=== PATIENT | female | born 1975 | race Caucasian/White ===

== ENCOUNTER 2022-03-02 13:58 | Outpatient (CLI) | payer BC, SELFPAY ==
--- NOTE | 2022-03-02 14:00 | CRLHL7_ITS ---
For Patients: As a result of the Century Cures Act, medical imaging exams and procedure reports are released immediately into your electronic medical record. You may view this report before your referring provider. If you have questions, please contact your health care provider. INDICATION: Chronic hypertension, IVF. COMPARISON: OB ultrasound 02/02/2022. TECHNIQUE: Real time burt scale imaging of the fetus was performed without non-stress testing. FINDINGS: Sonographic imaging demonstrates a single living intrauterine gestation. The fetus demonstrates a regular cardiac rate of 155 beats per minute. The fetus has a cephalic orientation. The placenta lies anteriorly. Amniotic fluid volume appears normal, with single deepest pocket measuring 3.9 cm (2/2). The fetus was active (2/2). The fetus demonstrated normal breathing movements (2/2). There was normal flexion and extension of the trunk and extremities (2/2). IMPRESSION: Normal biophysical profile score 8 out of 8. Dictated by Natalia Padgett MD @ 03/02/2022 5:55:49 PM (Electronically Signed)
== END 2022-03-02 13:59 | disposition home or self-care (01) ==
LOC: US 13:59
PROVIDERS: PCP Family Medicine; Visit Provider Physician Assistant
DX: O10.919 Unspecified pre-existing hypertension complicating pregnancy, unspecified trimester (principal); O09.819 Supervision of pregnancy resulting from assisted reproductive technology, unspecified trimester; Z3A.00 Weeks of gestation of pregnancy not specified
CPT/HCPCS: 76819

== ENCOUNTER 2022-03-03 09:53 | Outpatient (CLI) | payer BC, SELFPAY ==
[2022-03-04 09:43] LABS: Strep B DNA Probe NEGATIVE (Negative)
== END 2022-03-03 09:54 | disposition home or self-care (01) ==
LOC: NFLDREF 09:53
PROVIDERS: PCP Family Medicine; Visit Provider Advanced Practice Midwife
DX: Z34.90 Encounter for supervision of normal pregnancy, unspecified, unspecified trimester (principal)
CPT/HCPCS: 87081; 87653

== ENCOUNTER 2022-03-10 18:25 | Inpatient (IN) | payer BC, SELFPAY ==
[2022-03-10] VITALS (13 sets, daily range): BP systolic 135–170; BP diastolic 82–102; PULSE 90–105; RESP 16; TEMP 36.6–36.8; O2SAT 96
--- NOTE | 2022-03-10 18:35 | PM.OBHPLI ---
OB - H&P: HPI Labor/Induction History of Present Illness Time Seen by Provider: 18:35 Date Seen: 03/10/22 Chief Complaint: Malini is a 46 year old 1 para 0 at 37and 0/7 weeks gestation by embryo transfer, who is being admitted for cervical ripening followed by IOL for mild preeclampsia superimposed on chronic htn. She was seen in the office earlier today and noted to have BP 150-160's/90's-100's. She was then sent to Labor and delivery for serial blood pressure monitoring and preeclampsia labs. Her blood pressures primarily remained 140s/90s with a few diastolic blood pressures as high as 106. Preeclampsia labs showed hemoglobin 12.5, platelets 337, BUN 9, creatinine 0.6, AST 38, ALT 40 and urine protein/creatinine ratio 0.30. She had a protein creatinine ratio at her 1st visit 0.02. Her only symptom of preeclampsia is significant bilateral lower extremity edema. She otherwise denies headache, visual changes, right upper quadrant/midepigastric pain and nausea/vomiting. She has had reactive NST x2 today. She was allowed to leave the Center to go home and mushroom picker her legs for admission. She has not returned for Cook catheter placement. Planning low-dose Pitocin to start at midnight. Repeat preeclampsia labs with coags: PTT/INR, PTT and fibrinogen were also ordered. I will start magnesium sulfate for seizure prophylaxis if she requires IV antihypertensives for severe preeclampsia-range blood pressures. Her complete history and physical was dictated earlier today by Dr. Katherine De La Fuente on 03/10/2022. 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 Multiple anomalies 1. Conceived through IVF at [facility] Donor egg.? Age 22 Genetic testing done prior to IVF transfer.? BOY! 2.? Chronic Hypertension: was taking Nifedipine.? Switched to Labetalol 100mg BID at first OB visit. Pre E labs:? Normal AST:? 23 ALT:? 20 Protein/creatinine ratio:? 0.19 Labetalol increased to 150 mg twice daily on 10/29/2021 *BP noted to be 147/97 and 152/99 at [facility] appt on 02/21/22.? Labs done, all normal (P/C 0.2, plts 298, Hgb 12, ALT 36, Cr 0.67). Growth ultrasound q.4 weeks starting at 32 weeks BPP or NST starting at 32 weeks. Worsening hypertension noted at 37 weeks.? Sent to Center for induction of labor. 3.? Hypothyroidism: TSH 1st trit 1.55, 2nd tri 2.6, 3rd tri 1.35.? Levothyroxine 125 mcg throughout . 4.? AMA Level 2 u/s:? 11/09/2021.? heart not well visualized, femur bones disparity in size and appearance, worrisome for skeletal dysplasia.? Marginal cord insertion. *Referral to [facility] for echo and further evaluation:? Initial evaluation done on 11/16/2021.? Confirmed short left femur, angulated right femur, and no other structural abnormalities.? 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 Recommended follow-up ultrasound for growth in 4 weeks and echocardiogram with pediatric cardiology to address possible variant in heart position (scheduled): * echo:? 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 NO ADVERSE HEMODYNAMIC EFFECT.? Recommend echo and outpatient cardiology cisit within first 6 months of life. *Growth ultrasounds q4 weeks:? 12/16/21 EFW 681 g (19%), SDP 4.7cm *Growth US 01/17/22: EFW 1453g (45%), L FL 5% and bent.? Rec: f/u US in 4-6 wks *02/02/2022 US: BPP 8/8, Vtx, SDP 5.4cm. EFW 1698g, 9wd70jw, 18%.? BPD 81%, HC 96%, AC 69%, FL<3% *02/21/22 US: EFW 2433g (44%), BPD/HC 94->97%, femurs <3% and abnormally shaped.? BPP/NST 05/29.? Patient reportedly has Appt with [facility] on 02/24/22. * 02/21/22 Preeclampsia labs at [facility]: Hgb: 12.0, Plts: 298K, ALT 36, (no AST), Creat: 0.67. Urine P/C ratio: 0.20. *Weekly NST starting 33wks *Recommend delivery at 39-40 weeks.? Cleared by [facility] to deliver at [facility]. Recommended Genome sequencing baby after , [facility] recommended immediately because it takes a month or longer after . [facility] said this lab is sent out and should be done as soon as possible to help direct orthopedic management options. ?? 5. H/o abnormal pap starting in 2007, LEEP in 12/2016: LSIL; colp: MIRANDA 1 01/2018: NIL, +HPV; colp: MIRANDA 1, neg ECC Pap 09/16/21: NIL, neg HPV 6. BMI 29.2 A1C 4.9% 7. Initial OB ultrasound showed 3 leiomyomas measuring 3.9x3.8x3.4cm, 3.8x3.4x3.9cm, and 3.9x3.2x3.5cm 8. H/o HSV.? Valtrex 500 mg b.i.d. beginning 36 weeks. 9.? Rh-negative RhoGAM:? 01/05/2022. 10. Mild anemia, hemoglobin 10.8 Ferrous sulfate Flu vaccine: completed Covid vaccine: completed; booster 08/25/2020 TDAP 01/19/22 02/16/2021 Labs: Blood type A negative. Rubella: 8.39, immune HBsAg: non reactive HIV nonreactive GC/CT: neg/neg Hep C: non reactive Varicella: 743.70, immune Chief complaint: Induction Indications for induction: pre-eclampsia History of Present Dating criteria: other (Embryo transfer, this was conceived with donor eggs.) care: good care Ultrasounds: normal 1st trimester US and abnormal US findings (The baby has very short lower extremities see notes above.) complications: preeclampsia and chronic hypertension Labs Blood type: A (-) negative Rubella: immune RPR/VDLR: nonreactive GBS status: negative HBsAG: negative Review of Systems Status of ROS: Reports: 10 or more systems reviewed and unremarkable except as noted in History and below Meds Home Medications and Allergies Home Medications Medication Instructions Recorded Confirmed Type aspirin 81 mg chewable tablet 81 mg PO DAILY tab 02/17/22 03/10/22 History cholecalciferol (vitamin D3) 25 2,000 unit PO DAILY tab 02/17/22 03/10/22 History mcg (1,000 unit) tablet ferrous sulfate 325 mg (65 mg mg PO DAILY 02/17/22 03/10/22 History iron) tablet levothyroxine 125 mcg tablet mcg PO DAILY 02/17/22 03/10/22 History prenat.vits,jose,hpc-kvzd-evusr 1 tab PO QDAY 02/17/22 03/10/22 History valacyclovir 500 mg tablet mg PO .Daily as needed PRN 02/17/22 03/10/22 History labetalol 100 mg tablet 150 mg PO BID tab 02/22/22 03/10/22 History Allergies Allergy/AdvReac Type Severity Reaction Status Date / Time ketoconazole Allergy Mild Hives Verified 03/10/22 13:12 nystatin Allergy Mild Hives Verified 03/10/22 13:12 Sulfa Antibiotics Allergy Unknown Uncoded 03/10/22 13:12 OB - H&P: Exam Physical Exam: Vital signs: BP: 155/95, P 105, R 16, O2 sat 96% on RA. Constitutional: Constitutional: no acute distress Routine HEENT Exam: Head: Present atraumatic, normal inspection and normocephalic Routine Respiratory Exam: Respiratory: Present CTA bilaterally Routine Cardiovascular Exam: Cardiovascular: RRR Detailed Abdominal Exam: Comments: Gravid. NT. Normal bowel sounds throughout. Routine Exam: Comments: SVE: 1cm/70%/-2/mid/soft. Swartz score: 7 Detailed Labor and Delivery Exam: Patient Gravid: yes Dilation (cm): 1 Effacement (%): 70 Cervix position: mid Consistency: soft Cervical ripeness score: 7 Contraction frequency (min): 7 Contraction duration (sec): 45 Tachysystole: No Contraction intensity: Mild Fetus (Single): Station: -2 Heart Rate Baseline: 130 Monitor Accelerations: Present Monitor Decelerations: None Prison Variability: Moderate (11-25) Routine Extremities Exam: Extremities: Present pedal edema Routine Neurological Exam: Comments: DTR's 2+/2 at bilateral patella w/o clonus. OB - Problem Based A/P Additional Plan (1) Pre-eclampsia superimposed on chronic hypertension: Status: Acute (2) Conceived by in vitro fertilization: Status: Acute (3) Hypothyroidism: Status: Acute (4) musculoskeletal anomaly: Problem details: Short femurs Status: Acute Plan 1. Admit to L&D for IOL 2. Cook catheter to be placed, start low dose pitocin at midnight 3. Preeclampsia labs now and repeat in the am: CBC w/o diff, AST, ALT, BUN, Creat 4. Coags now: INR/PT, PTT, fibrinogen 5. If the patient's BP requires IV antihypertensive therapy then she will meet criteria for severe preeclampsia and magnesium sulfate will be started for seizure prophylaxis. 6. Recommendations for serum labs requested from the [facility] in the patient's EMR. 7. Blood type A negative. 8. GBS negative.
[2022-03-10 19:41] LABS: Hematocrit 37.6 % (33.0-51.0); Hemoglobin* 12.6 gm/dL (12.0-16.0); Mean Corpuscular HGB Conc 34 gm/dL (32-36); Mean Corpuscular Hemoglobin 32 pg (26-34); Mean Corpuscular Volume 94 fL (80-100); Platelet Count* 302 K/uL (140-440); Red Blood Count 3.99 m/uL (4.00-5.20)
[2022-03-10 19:42] LABS: Slide Review Reflex No
[2022-03-10 20:12] LABS: INR 0.95 (0.91-1.10); Prothrombin Time 13.1 Seconds
[2022-03-10 20:22] LABS: Alanine Aminotransferase* 39 U/L (4-35); Aspartate Amino Transferase* 37 U/L (12-35); Blood Urea Nitrogen* 9 mg/dL (5-24); Creatinine* 0.6 mg/dL (0.5-1.5); Estimated Glomerular Filt Rate 113 ml/min
[2022-03-10 20:56] LABS: Fibrinogen* 542 mg/dL (200-450)
[2022-03-10 21:13] LABS: SARS PCR* Negative SARS-CoV-2 (Negative)
[2022-03-10] MEDS: CALCIUM CARBONATE 500 MG CHEW PO (22:04)
[2022-03-10] MEDS: hydrOXYzine pamoate 25 MG CAPSULE 100 MG PO (22:48)
[2022-03-10] MEDS: ACETAMINOPHEN 500 MG TABLET 1000 MG PO (23:35)
[2022-03-11] VITALS (83 sets, daily range): BP systolic 97–179; BP diastolic 54–99; PULSE 76–99; RESP 16–20; TEMP 36.4–36.8; O2SAT 95–99
[2022-03-11] MEDS: LACTATED RINGERS 1000 ML 1,000 ML 125 ML IV ×5 (00:12→21:35)
[2022-03-11] MEDS: OXYTOCIN 30 unit/500 ML in NS 30 UNIT/500 ML BAG IVPB (00:12)
[2022-03-11] MEDS: MORPHINE 10 MG/ML inj IM (00:39)
[2022-03-11 07:42] LABS: Hematocrit 35.4 % (33.0-51.0); Hemoglobin* 11.9 gm/dL (12.0-16.0); Mean Corpuscular HGB Conc 34 gm/dL (32-36); Mean Corpuscular Hemoglobin 32 pg (26-34); Mean Corpuscular Volume 94 fL (80-100); Platelet Count* 287 K/uL (140-440); Red Blood Count 3.76 m/uL (4.00-5.20); White Blood Count* 11.91 K/uL (4.50-11.00)
[2022-03-11 07:48] LABS: Slide Review Reflex No
[2022-03-11 08:09] LABS: INR 0.94 (0.91-1.10)
[2022-03-11 08:10] LABS: Fibrinogen* 513 mg/dL (200-450)
[2022-03-11 08:11] LABS: Alanine Aminotransferase* 34 U/L (4-35); Aspartate Amino Transferase* 33 U/L (12-35); Blood Urea Nitrogen* 6 mg/dL (5-24); Creatinine* 0.5 mg/dL (0.5-1.5); Estimated Glomerular Filt Rate 118 ml/min
[2022-03-11] MEDS: LABETALOL HCL 100 MG TABLET 150 MG PO (09:12)
--- NOTE | 2022-03-11 10:36 | PM.OBPNL ---
Pain Control Time Seen by Provider: 10:25 Date Seen: 03/11/22 Pain control: tolerating well Comments: Denies pain. Aware of mild contractions. Contractions Monitor mode: External Contraction frequency: 2 Contraction intensity: Mild Pelvic Exam Dilation (cm): 6 Effacement (%): 60 Station: -2 Comments: BBOW. Amniotomy performed, clear fluid noted. Fetus (Single) Amniotic Membrane Status: AROM status: Category l Assessment and Plan Assessment: induction ongoing Plan: continue present management
[2022-03-11] MEDS: LEVOTHYROXINE 125 MCG TABLET PO (10:52)
[2022-03-11] MEDS: CALCIUM CARBONATE 500 MG CHEW PO ×3 (12:39→18:23)
[2022-03-11] MEDS: ACETAMINOPHEN 500 MG TABLET 1000 MG PO (15:18)
--- NOTE | 2022-03-11 15:52 | P.OBPN_ITS ---
Pain Control Time Seen by Provider: 02:30 Date Seen: 03/11/22 Pain control: tolerating well Contractions Monitor mode: External Contraction frequency: 2 Contraction pattern: Regular Contraction intensity: Mild Pelvic Exam Dilation (cm): 7 Effacement (%): 85 Station: -2 Fetus (Single) Amniotic Membrane Status: AROM status: Category l Assessment and Plan Pitocin rate (mU/min): 15 Assessment: active labor Comments: IUPC was placed. Nurse to place scalp electrode. Continue Pitocin augmen tation of labor.
[2022-03-11] MEDS: LIDOCAINE 2% (PF) 5 ML VIAL EPIDURAL (16:23)
[2022-03-11] MEDS: ROPIVACAINE 0.2% 100 ml 100 ML 12 MG EPIDURAL (16:30)
[2022-03-11] MEDS: PHENYLEPHRINE 100 MCG/ML SYRINGE IVP ×2 (16:36→16:42)
--- NOTE | 2022-03-11 16:36 | PM.ANBPRC ---
[facility] Medical History (Updated 03/11/22 @ 10:42 by Marilynn Robles MD) Chronic hypertension musculoskeletal anomaly History of abnormal cervical Papanicolaou smear History of herpes genitalis Hypothyroidism (12/01/08) LGSIL on Pap smear of cervix (03/20/14) Pre-eclampsia superimposed on chronic hypertension Primigravida of advanced maternal age Short lower extremities of fetus affecting antepartum care of mother Surgical History (Updated 03/10/22 @ 17:10 by Katherine De La Fuente MD) History of loop electrical excision procedure (LEEP) Social History (Updated 03/10/22 @ 17:11 by Katherine De La Fuente MD) Narrative: She and her live just outside of [place]. She does not smoke, drink alcohol, or use recreational drugs. She and her have many pets Smoking Status: Never smoker Meds Home Medications and Allergies Home Medications Medication Instructions Recorded Confirmed Type aspirin 81 mg chewable tablet 81 mg PO DAILY tab 02/17/22 03/10/22 History cholecalciferol (vitamin D3) 25 2,000 unit PO DAILY tab 02/17/22 03/10/22 History mcg (1,000 unit) tablet ferrous sulfate 325 mg (65 mg 325 mg PO DAILY 02/17/22 03/10/22 History iron) tablet levothyroxine 125 mcg tablet 125 mcg PO DAILY 02/17/22 03/10/22 History prenat.vits,jose,gjw-crpg-ulall 1 tab PO QDAY 02/17/22 03/10/22 History valacyclovir 500 mg tablet 500 mg PO .Daily as needed PRN 02/17/22 03/10/22 History labetalol 100 mg tablet 150 mg PO BID tab 02/22/22 03/10/22 History Allergies Allergy/AdvReac Type Severity Reaction Status Date / Time ketoconazole Allergy Mild Hives Verified 03/10/22 13:12 nystatin Allergy Mild Hives Verified 03/10/22 13:12 Sulfa Antibiotics Allergy Unknown Uncoded 03/10/22 13:12 Results Labs Labs: Laboratory Results - last 24 hr 03/10/22 03/10/22 03/10/22 19:22 19:22 19:22 WBC 9.80 RBC 3.99 L Hgb 12.6 Hct 37.6 MCV 94 MCH 32 MCHC 34 Plt Count 302 INR 0.95 Fibrinogen 542 H BUN 9 Creatinine 0.6 Estimated GFR 113 AST 37 H ALT 39 H SARS-CoV-2 (PCR) 03/10/22 03/11/22 03/11/22 19:48 07:30 07:30 WBC 11.91 H RBC 3.76 L Hgb 11.9 L Hct 35.4 MCV 94 MCH 32 MCHC 34 Plt Count 287 INR 0.94 Fibrinogen 513 H BUN Creatinine Estimated GFR AST ALT SARS-CoV-2 (PCR) Negative SARS-CoV-2 03/11/22 07:30 WBC RBC Hgb Hct MCV MCH MCHC Plt Count INR Fibrinogen BUN 6 Creatinine 0.5 Estimated GFR 118 AST 33 ALT 34 SARS-CoV-2 (PCR) Vital Signs Vital Signs: Last Vital Signs Temp 98 F 03/11/22 10:45 Pulse 93 03/11/22 16:34 Resp 18 03/11/22 10:45 BP 117/70 03/11/22 16:34 Pulse Ox 98 03/11/22 16:34 Weight: 89.63 kg Anesthesia Procedures Epidural Insertion Patient Location: OB Start Time: 15:50 Stop Time: 16:36 Start Date: 03/11/22 Stop Date: 03/11/22 Reason for Block: procedure for pain Patient Position: sitting Performed By: Caleb Funez Preanesthetic Checklist: IV checked, site marked, risks and benefits discussed, monitors and equipment checked, pre-op evaluation, timeout performed and anesthesia consent Prep: chlorhexidine gluconate Monitoring: blood pressure monitoring, continuous pulse oximetry and heart rate Approach: midline Vertebral Space: lumbar (1-5) Epidural Technique: SATURNINO air Needle Type: Tuohy needle Injection Technique: continuous shot Needle gauge: 17 Needle Insertion Depth (cm): 8 Catheter Type: multi-orifice Catheter at skin depth (cm): 13 Test Dose Result: negative and lidocaine 1.5% with epinephrine 1 to 200,000
[2022-03-11] MEDS: FAMOTIDINE 20 MG TABLET PO (19:29)
--- NOTE | 2022-03-11 20:23 | PM.OBPNL ---
Pain Control Time Seen by Provider: 20:18 Date Seen: 03/11/22 Pain control: epidural Comments: Comfortable with contractions. Having some involuntary shakes. Tired. Contractions Monitor mode: External Contraction frequency: 4 Contraction pattern: Regular Contraction intensity: Moderate Pelvic Exam Dilation (cm): 7 Effacement (%): 80 Station: -2 Comments: Cervix feels somewhat puffy now Fetus (Single) Amniotic Membrane Status: AROM status: Category l Assessment and Plan Pitocin rate (mU/min): 12 Assessment: active labor Comments: Secondary arrest of descent, despite good pain control, maternal positioning, and pit break. Recommend delivery. Relative risks and benefits discussed. Also reviewed postop pain control, activity restrictions, anticipated hospital stay. Informed consent obtained. OR team notified. Peds notified.
[2022-03-11] MEDS: CEFAZOLIN 2 GM in 0.9 % SODIUM CHLORIDE Mini-bag 100 ML IVPB (21:10)
[2022-03-11] MEDS: KETOROLAC 15 MG/ML inj IVP (21:46)
--- NOTE | 2022-03-11 22:18 | P.OBPRC_ITS ---
Procedure Pre-op/Post-op diagnoses: Pre-Op/Post-Op Diagnoses Operation Date: 03/11/22 21:15 <No data on this case meets the specified criteria> Procedure Done: Global Procedure Details: Procedures Operation Date: 03/11/22 21:15 Actual Procedure Side Surgeon p Section Not Applicable Marilynn Robles MD Estimated blood loss (mL): 680 Disposition: floor Anesthesia type: Epidural Complications: None Narrative: PREOPERATIVE DIAGNOSES: 1. Intrauterine at 37 1/7 weeks' gestation. 2. Secondary arrest of dilatation and descent. POSTOPERATIVE DIAGNOSES: 1. Intrauterine at 37 1/7 weeks' gestation. 2. Secondary arrest of dilatation and descent. NAME OF PROCEDURE: Primary low transverse section. SURGEON: Travis. ANESTHESIA: Epidural. COMPLICATIONS: None. ESTIMATED BLOOD LOSS: 680 mL. DRAINS: Burnett to gravity. FINDINGS: Live-born male infant, cephalic presentation, OPP presentation and asynclitic. Apgars 8 and 7 at 1 and 5 minutes respectively. weight 6 lb 12 oz. Normal appearing uterus, tubes, and ovaries. PROCEDURE: After obtaining informed consent, the patient was taken to the operating room where spinal anesthesia was obtained and found to be adequate. She was prepared and draped in the normal sterile fashion in the dorsal supine position with a leftward tilt. A Pfannenstiel skin incision was made with a sca lpel. This incision was carried down to the underlying layer of fascia with the Bovie. The fascia was incised in the midline and the incision extended laterally. The superior and inferior aspects of the fascial incision were grasped with Iris clamps, elevated and the underlying rectus muscles dissected off sharply and with electrocautery. The rectus muscles were then in the midline. The Frank O retractor was then placed into the incision. The lower uterine segment was then incised in a transverse fashion with the scalpel. Upon entry into the uterus, clear amniotic fluid was noted. The uterine incision was extended laterally with blunt finger fractionation. The 's head was delivered atraumatically, followed by the remainder of the 's body. The nose and mouth were suctioned with the bulb suction. The cord was doubly clamped and cut, and the infant was handed off the field to [facility] for evaluation. The placenta was delivered spontaneously with umbilical cord traction and fundal massage. The uterus was cleared of all clots and debris. The uterine incision was reapproximated in a running locking fashion with a 0 chromic suture. A 2nd layer of the same suture was used to imbricate in horizontal fashion. The gutters were irrigated and suctioned. All instruments and retractors were removed. The anterior peritoneum was reapproximated in a running fashion with a 3-0 Vicryl suture. The subfascial tissues were carefully inspected and hemostasis assured. The fascia was reapproximated in a running fashion with a looped 0 Maxon suture. The subcutaneous tissues were copiously irrigated. Hemostasis was assured. The subcutaneous fat layer was reapproximated with interrupted sutures of 3-0 plain gut. The skin was closed in a subcuticular fashion with 4-0 Vicryl. LiquiBand and dressing were applied. The patient tolerated the procedure well. Sponge, lap, needle, and instrument counts were reported as correct x2. The patient was taken to the recovery room, awake, and in stable condition. She did receive 2 grams of IV Ancef preoperatively. OB Delivery Proc Additional Procedures Tubal Ligation at the time of : No
--- NOTE | 2022-03-11 22:29 | W.ANESCHARGE ---
Anesthesia Charges Start Date/Time Anesthesia Start Date: 03/11/22 Anesthesia Start Time: 21:08 Stop Date/Time Anesthesia Stop Date: 03/11/22 Anesthesia Stop Time: 22:30 Summary Emergency: Yes
[2022-03-12] VITALS (25 sets, daily range): BP systolic 110–135; BP diastolic 71–87; PULSE 67–83; RESP 16–18; TEMP 36.3–36.8; O2SAT 96–100
[2022-03-12] MEDS: LACTATED RINGERS 1000 ML 1,000 ML 125 ML IV (00:43)
[2022-03-12] MEDS: LABETALOL HCL 100 MG TABLET 150 MG PO ×3 (01:08→21:12)
[2022-03-12] MEDS: KETOROLAC 30 MG/ML inj IVP ×4 (04:01→22:26)
[2022-03-12 07:13] LABS: Hemoglobin* 10.8 gm/dL (12.0-16.0)
[2022-03-12] MEDS: DOCUSATE SODIUM 100 MG CAPSULE PO (09:26)
[2022-03-12] MEDS: FAMOTIDINE 20 MG TABLET PO (09:26)
[2022-03-12] MEDS: LEVOTHYROXINE 125 MCG TABLET PO (09:27)
--- NOTE | 2022-03-12 09:43 | PM.OBPNCS1 ---
OB - PN: A/P Assessment and Plan (1) Pre-eclampsia superimposed on chronic hypertension: Problem details: Status: Acute Assessment and Plan: BP stable. Continue labetalol 150 mg po BID. (2) Hypothyroidism: Status: Acute Assessment and Plan: Stable. Continue levothyroxine as ordered. (3) musculoskeletal anomaly: Problem details: Short femurs Status: Acute (4) S/P section: Status: Acute Plan day: 1 Plan: routine postop care OB - PN: Subj Subjective Time Seen by Provider: 09:30 Date Seen: 03/12/22 Interval history: The patient is a 46 year old G1 P 1001 that was admitted to the Center on 03/10/22 for induction of labor for chronic hypertension with superimposed mild preeclampsia. She had an uncomplicated primary low transverse delivery for arrest of dilatation and descent. She delivered a viable male infant. He is reportedly doing well. She is breast feeding. She feels tired this morning and states she needs to catch up on sleep. She had an episode of nausea and vomited orange juice this morning. Patient comments: pain well controlled status: and doing well feeding status: exclusively OB - PN: Obj Exam Physical Exam: Vital signs: Temp Pulse Resp BP Pulse Ox 98 F 67 16 110/71 97 03/12/22 04:30 03/12/22 04:04 03/12/22 06:30 03/12/22 04:04 03/12/22 04:04 Constitutional: Constitutional: no acute distress and cooperative Routine Abdominal Exam: Abdominal: Present normal bowel sounds Fundus: Present firm Routine Extremities Exam: Extremities: Present pedal edema (1+); Absent tenderness Wound Management: Method: suture Examination: Present dressed (dry) OB - PN: Obj Data Labs Labs: Laboratory Results - last 24 hr 03/11/22 03/12/22 07:30 07:08 Hgb 10.8 L Blood Type A Negative Antibody Screen NEGATIVE
[2022-03-12] MEDS: ACETAMINOPHEN 500 MG TABLET 1000 MG PO (21:12)
[2022-03-13] VITALS (7 sets, daily range): BP systolic 110–153; BP diastolic 68–100; PULSE 74–85; RESP 14–18; TEMP 36.6–36.9; O2SAT 96–97
[2022-03-13] MEDS: KETOROLAC 30 MG/ML inj IVP (04:31)
--- NOTE | 2022-03-13 07:53 | P.OBPN_ITS ---
OB - PN: A/P Assessment and Plan (1) Pre-eclampsia superimposed on chronic hypertension: Problem details: Status: Acute (2) Hypothyroidism: Status: Acute (3) musculoskeletal anomaly: Problem details: Short femurs Status: Acute (4) S/P section: Status: Acute Plan day: 2 Plan: routine postop care Comments: Post Op day 2. -Continue routine PP care -anticipate discharge home tomorrow . -Continue to work with nursing for help w/ . -May also see prior to discharge. Acute anemia. -Asymptomatic Superimposed preeclampsia on chronic hypertension. -BPs WNL at this time -Continue with BID labetalol as previously ordered OB - PN: Subj Subjective Time Seen by Provider: 07:53 Date Seen: 03/13/22 Interval history: The patient is a 46 year old G1 P 1001 that was admitted to the Center on 03/10/22 for induction of labor for chronic hypertension with superimposed mild preeclampsia. She had an uncomplicated primary low transverse delivery for arrest of dilatation and descent. She delivered a viable male . Overall, the patient feels well. The pain is well controlled with current medications, but does note more pain than the previous days. She believes this is since switching to orals, but states it is tolerable and that she is up moving. She has no new complaints. Urinary output is adequate and she is voiding without difficulty. Has a good appetite, is tolerating a general diet, is passing flatus, and has not had a bowel movement. Denies heavy vaginal bleeding or passage of clots. She is ambulating well. She is and having some difficulty w/ latch. Does say the baby had a good latch this morning. Patient comments: no complaints, pain well controlled (tolerable with medication), tolerating diet and flatus present Mcdermott status: OB - PN: Obj Exam Physical Exam: Vital signs: Temp Pulse Resp BP Pulse Ox 98.4 F 76 18 117/74 97 03/13/22 04:27 03/13/22 04:27 03/13/22 04:27 03/13/22 04:27 03/13/22 00:05 Constitutional: Constitutional: no acute distress and cooperative Routine HEENT Exam: Head: Present normocephalic Routine Neck Exam: Neck: Present full ROM Routine Respiratory Exam: Respiratory: Present CTA bilaterally Routine Cardiovascular Exam: Cardiovascular: Present RRR Routine Abdominal Exam: Abdominal: Present normal bowel sounds Fundus: Present firm (@ U, non tender) Routine Extremities Exam: Extremities: Present full ROM and pedal edema (+1) Routine Back/Spine/Pelvis Exam: Back/Spine: Present full ROM Routine Skin Exam: Skin: Present dry Comments: Dressing remains on, clean/dry/intact Routine Neurological Exam: Neurological: Present alert and oriented X3 Routine Psychiatric Exam: Psychiatric: Present normal affect Wound Management: Examination: Present dressed, clean, dry and intact
[2022-03-13] MEDS: ACETAMINOPHEN 500 MG TABLET 1000 MG PO ×3 (08:14→23:14)
[2022-03-13] MEDS: DOCUSATE SODIUM 100 MG CAPSULE PO (08:15)
[2022-03-13] MEDS: LABETALOL HCL 100 MG TABLET 150 MG PO ×3 (09:10→20:26)
[2022-03-13] MEDS: IBUPROFEN 600 MG TABLET PO ×2 (12:32→20:21)
[2022-03-13 14:08] LABS: Basophils Percent Auto 0.3 % (0.0-3.0); Hemoglobin* 11.1 gm/dL (12.0-16.0); Immature Granulocytes Abs Auto 0.05 K/uL (0.00-0.30); Mean Corpuscular HGB Conc 33 gm/dL (32-36); Mean Corpuscular Hemoglobin 32 pg (26-34); Mean Corpuscular Volume 97 fL (80-100); Monocytes Percent Auto 5.6 % (0.0-11.0); Neutrophils Percent Auto 78.7 % (42.0-72.0); Platelet Count* 333 K/uL (140-440); RDW Coefficient of Variation % 13.8 % (11.5-15.5); Red Blood Count 3.49 m/uL (4.00-5.20); White Blood Count* 11.46 K/uL (4.50-11.00)
[2022-03-13 14:13] LABS: Slide Review Reflex No
[2022-03-13 14:45] LABS: Alanine Aminotransferase* 32 U/L (4-35); Aspartate Amino Transferase* 43 U/L (12-35); Blood Urea Nitrogen* 15 mg/dL (5-24)
[2022-03-13 15:15] LABS: Creatinine* 0.7 mg/dL (0.5-1.5); Estimated Glomerular Filt Rate 109 ml/min
[2022-03-13] MEDS: OXYCODONE 5 MG TABLET PO (23:14)
[2022-03-14] VITALS (11 sets, daily range): BP systolic 139–177; BP diastolic 90–115; PULSE 80–89; RESP 16–20; TEMP 36.5–36.9; O2SAT 97–99
[2022-03-14] MEDS: LABETALOL HCL 100 MG TABLET PO (02:26)
[2022-03-14] MEDS: IBUPROFEN 600 MG TABLET PO ×3 (04:22→23:37)
[2022-03-14] MEDS: OXYCODONE 5 MG TABLET PO ×2 (04:27→23:36)
[2022-03-14] MEDS: LEVOTHYROXINE 125 MCG TABLET PO (08:02)
[2022-03-14] MEDS: LABETALOL HCL 100 MG TABLET 300 MG PO ×3 (08:04→23:35)
[2022-03-14] MEDS: FAMOTIDINE 20 MG TABLET PO (08:07)
[2022-03-14] MEDS: DOCUSATE SODIUM 100 MG CAPSULE PO (08:08)
--- NOTE | 2022-03-14 08:40 | PM.OBPNCS1 ---
OB - PN: A/P Assessment and Plan (1) Pre-eclampsia superimposed on chronic hypertension: Problem details: Status: Acute (2) Hypothyroidism: Status: Acute (3) musculoskeletal anomaly: Problem details: Short femurs Status: Acute (4) S/P section: Status: Acute Plan Incision clean dry and well approximated. Consult with MD for Blood pressure management. Plan Plan: routine postop care OB - PN: Subj Subjective Date Seen: 03/14/22 Interval history: The patient is a 46 year old G1 P 1001 that was admitted to the Center on 03/10/22 for induction of labor for chronic hypertension with superimposed mild preeclampsia. She had an uncomplicated primary low transverse delivery for arrest of dilatation and descent. She delivered a viable male infant. Overall, the patient feels well. The pain is well controlled with current medications. She had increased pain last evening but it has been under better control overnight and into this morning. 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 She states that she just wants to go outside and get some fresh air. She would like to get some medications to control her anxiety since she will not be able to go home this morning due to her elevated blood pressures. She is ambulating well. She is . She states that it has improved and denies concerns at this time. Patient comments: pain well controlled, tolerating diet, flatus present and other (anxious) Barre status: Barre feeding status: exclusively OB - PN: Obj Exam Physical Exam: Vital signs: Temp Pulse Resp BP Pulse Ox 98.1 F 84 18 147/101 H 97 03/14/22 04:19 03/14/22 04:19 03/14/22 04:19 03/14/22 04:19 03/14/22 04:19 Constitutional: Constitutional: no acute distress Routine Neck Exam: Neck: Present full ROM Routine Respiratory Exam: Respiratory: Present CTA bilaterally Routine Cardiovascular Exam: Cardiovascular: Present RRR Routine Abdominal Exam: Abdominal: Present soft Fundus: Present firm Routine Extremities Exam: Extremities: Present full ROM Routine Neurological Exam: Neurological: Present alert and oriented X3 Routine Psychiatric Exam: Psychiatric: Present normal thought process and anxious Wound Management: Method: adhesive Drains: none Examination: Present clean, dry and intact OB - PN: Obj Data Labs Labs: Laboratory Results - last 24 hr 03/13/22 03/13/22 13:50 13:50 WBC 11.46 H RBC 3.49 L Hgb 11.1 L Hct 34.0 MCV 97 MCH 32 MCHC 33 RDW Coeff of Roni 13.8 Plt Count 333 Neut % (Auto) 78.7 H Lymph % (Auto) 14.0 L [place] % (Auto) 5.6 Eos % (Auto) 1.0 Baso % (Auto) 0.3 Neut # (Auto) 9.00 H Lymph # (Auto) 1.60 [place] # (Auto) 0.60 Eos # (Auto) 0.10 Baso # (Auto) 0.00 Abs Immat Gran (auto) 0.05 BUN 15 Creatinine 0.7 Estimated GFR 109 AST 43 H ALT 32 Total Creatine Kinase Cancelled
[2022-03-14] MEDS: NIFEdipine 30 MG TAB.ER.24 PO (09:30)
--- NOTE | 2022-03-14 09:45 | P.OBPN_ITS ---
OB - PN: A/P Assessment and Plan (1) Pre-eclampsia superimposed on chronic hypertension: Problem details: Status: Acute Assessment and Plan: 1. Meets severe preeclampsia by BP criteria. 2. Patient denies: ARVIZU, visual changes, RUQ/mid-epigastric pain, N/V. Swelling is decreasing. 3. Labs ordered now, repeat in the am: AST, ALT, CBC without differential, BUN and creatinine. 4. Magnesium sulfate for seizure prophylaxis [id number]. (2) Hypothyroidism: Status: Acute (3) musculoskeletal anomaly: Problem details: Short femurs Status: Acute (4) S/P section: Status: Acute OB - PN: Subj Subjective Time Seen by Provider: 09:30 Date Seen: 03/14/22 Interval history: The patient is a 46 year old G1 P 1001 that was admitted to the Center on 03/10/22 for induction of labor for chronic hypertension with superimposed mild preeclampsia. She had an uncomplicated primary low transverse delivery for arrest of dilatation and descent. She delivered a viable male infant. Her BP this morning was 170/114. Discharge held. This meets criteria for severe preeclampsia so magnesium sulfate was started for seizure prophylaxis. Preeclampsia labs ordered: AST, ALT, CBC w/o diff, Creat, BUN now and again tomorrow morning. BP decreased to 159/94, 20 minutes after her morning labetalol 300mg. I increased the labetalol to 300mg PO TID from BID and added Nifedipine ER 30 daily. OB - PN: Obj Exam Physical Exam: Vital signs: Temp Pulse Resp BP Pulse Ox 98.1 F 84 18 147/101 H 97 03/14/22 04:19 03/14/22 04:19 03/14/22 04:19 03/14/22 04:19 03/14/22 04:19 OB - PN: Obj Data Labs Labs: Laboratory Results - last 24 hr 03/13/22 03/13/22 13:50 13:50 WBC 11.46 H RBC 3.49 L Hgb 11.1 L Hct 34.0 MCV 97 MCH 32 MCHC 33 RDW Coeff of Roni 13.8 Plt Count 333 Neut % (Auto) 78.7 H Lymph % (Auto) 14.0 L [place] % (Auto) 5.6 Eos % (Auto) 1.0 Baso % (Auto) 0.3 Neut # (Auto) 9.00 H Lymph # (Auto) 1.60 [place] # (Auto) 0.60 Eos # (Auto) 0.10 Baso # (Auto) 0.00 Abs Immat Gran (auto) 0.05 BUN 15 Creatinine 0.7 Estimated GFR 109 AST 43 H ALT 32 Total Creatine Kinase Cancelled
[2022-03-14 12:23] LABS: Hematocrit 33.8 % (33.0-51.0); Hemoglobin* 11.2 gm/dL (12.0-16.0); Mean Corpuscular HGB Conc 33 gm/dL (32-36); Mean Corpuscular Hemoglobin 32 pg (26-34); Mean Corpuscular Volume 96 fL (80-100); Platelet Count* 339 K/uL (140-440); Red Blood Count 3.51 m/uL (4.00-5.20); White Blood Count* 9.27 K/uL (4.50-11.00)
[2022-03-14] MEDS: ACETAMINOPHEN 500 MG TABLET 1000 MG PO ×2 (12:40→21:18)
[2022-03-14 12:43] LABS: Slide Review Reflex No
[2022-03-14 12:54] LABS: Aspartate Amino Transferase* 52 U/L (12-35); Blood Urea Nitrogen* 12 mg/dL (5-24); Creatinine* 0.6 mg/dL (0.5-1.5); Estimated Glomerular Filt Rate 113 ml/min
[2022-03-14 12:55] LABS: Alanine Aminotransferase* 40 U/L (4-35)
[2022-03-14] MEDS: guaiFENesin 600 MG TAB.ER.12H 1200 MG PO (15:45)
[2022-03-15] VITALS (7 sets, daily range): BP systolic 122–152; BP diastolic 74–97; PULSE 74–84; RESP 16–20; TEMP 36.3–36.8; O2SAT 97–99
[2022-03-15] MEDS: ACETAMINOPHEN 500 MG TABLET 1000 MG PO ×3 (03:46→21:06)
[2022-03-15] MEDS: IBUPROFEN 600 MG TABLET PO ×2 (05:28→16:16)
[2022-03-15] MEDS: LEVOTHYROXINE 125 MCG TABLET PO ×2 (07:30→07:31)
[2022-03-15 07:37] LABS: Hematocrit 32.8 % (33.0-51.0); Hemoglobin* 10.9 gm/dL (12.0-16.0); Mean Corpuscular HGB Conc 33 gm/dL (32-36); Mean Corpuscular Hemoglobin 32 pg (26-34); Mean Corpuscular Volume 96 fL (80-100); Platelet Count* 324 K/uL (140-440); Red Blood Count 3.43 m/uL (4.00-5.20)
[2022-03-15 07:40] LABS: Slide Review Reflex No
[2022-03-15 07:56] LABS: Alanine Aminotransferase* 78 U/L (4-35); Aspartate Amino Transferase* 90 U/L (12-35); Blood Urea Nitrogen* 10 mg/dL (5-24); Creatinine* 0.6 mg/dL (0.5-1.5); Estimated Glomerular Filt Rate 113 ml/min
--- NOTE | 2022-03-15 08:50 | P.OBPN_ITS ---
OB - PN: A/P Assessment and Plan (1) Pre-eclampsia superimposed on chronic hypertension: Problem details: Status: Acute (2) Hypothyroidism: Status: Acute (3) musculoskeletal anomaly: Problem details: Short femurs Status: Acute (4) S/P section: Status: Acute Plan 1. Magnesium sulfate infusion to be discontinued shortly. I would recommend continued observation of blood pressures overnight. 2. The patient will be allowed to ambulate as tolerated. I believe that she would benefit from being allowed to go outside for short period of times today. I reassured her that she should be ready for discharge tomorrow. Plan day: 5 Plan: routine postop care OB - PN: Subj Subjective Time Seen by Provider: 08:30 Date Seen: 03/15/22 Interval history: The patient is a 46 year old G1 P 1001 that was admitted to the Center on 03/10/22 for induction of labor for chronic hypertension with superimposed mild preeclampsia. She had an uncomplicated primary low transverse delivery for arrest of dilatation and descent. She delivered a viable male . She has been on magnesium sulfate infusion since 9:00 a.m. yesterday morning for severe range blood pressures and elevated liver function tests. Overall, the patient feels well. The pain is well controlled with current medications. She is disappointed to hear that we will likely need to keep her overnight for observation once the magnesium sulfate infusion has been discontinued, in order to monitor her blood pressures and recheck her labs. She states that she just wants to go outside and get some fresh air. She is ambulating well. She is feeling a little bloated, and has not had much in the way of bowel movements. She is . Infant is reportedly doing well. Patient comments: pain well controlled and flatus present [place] status: other (Already discharged from care) feeding status: exclusively OB - PN: Obj Exam Physical Exam: Vital signs: Temp Pulse Resp BP Pulse Ox 98.2 F 82 20 122/74 99 03/15/22 04:07 03/14/22 23:46 03/15/22 04:07 03/15/22 07:40 03/15/22 04:07 Constitutional: Constitutional: no acute distress and cooperative Routine Abdominal Exam: Abdominal: Present normal bowel sounds and soft; Absent tenderness Fundus: Present firm Wound Management: Examination: Present clean, dry and intact; Absent erythematous or tenderness OB - PN: Obj Data Labs Labs: Laboratory Results - last 24 hr 03/14/22 03/14/22 03/15/22 12:17 12:17 07:28 WBC 9.27 8.50 RBC 3.51 L 3.43 L Hgb 11.2 L 10.9 L Hct 33.8 32.8 L MCV 96 96 MCH 32 32 MCHC 33 33 Plt Count 339 324 BUN 12 Creatinine 0.6 Estimated GFR 113 AST 52 H ALT 40 H 03/15/22 07:28 WBC RBC Hgb Hct MCV MCH MCHC Plt Count BUN 10 Creatinine 0.6 Estimated GFR 113 AST 90 H ALT 78 H
[2022-03-15] MEDS: guaiFENesin 600 MG TAB.ER.12H 1200 MG PO ×2 (09:10→21:07)
[2022-03-15] MEDS: NIFEdipine 30 MG TAB.ER.24 PO (09:10)
[2022-03-15] MEDS: FAMOTIDINE 20 MG TABLET PO (09:10)
[2022-03-15] MEDS: DOCUSATE SODIUM 100 MG CAPSULE PO (09:11)
--- NOTE | 2022-03-15 09:44 | PC.NURSE ---
Met with mom and baby for consult, baby has been D/C'd. Patient reports is going well overall- she's able to latch him to both sides and is now starting with the cross cradle hold. At this visit she latched baby independently to both sides after suggesting that she turn him more tummy to tummy. He doesn't want to open his mouth very wide but when he latches mom is comfortable. He lost the latch several times, but did better when patient was coached to continue supporting her breast for a few minutes once baby was latched. Suggested she offer both sides with each feeding and pump/hand express to comfort after nursing if needed. Gave her handout on stretches for back, chest, and neck as she reported her neck was sore from looking down while baby nursed.
[2022-03-15] MEDS: LABETALOL HCL 100 MG TABLET 300 MG PO ×3 (11:00→21:06)
[2022-03-15] MEDS: hydrOXYzine pamoate 25 MG CAPSULE PO (20:23)
[2022-03-16] MEDS: hydrOXYzine pamoate 25 MG CAPSULE PO (00:05)
[2022-03-16] MEDS: IBUPROFEN 600 MG TABLET PO (00:05)
[2022-03-16 00:40] VITALS: BP 151/92; PULSE 92; RESP 14; TEMP 36.9; O2SAT 98
[2022-03-16 04:00] VITALS: BP 154/95; PULSE 76; RESP 16; TEMP 36.9; O2SAT 98
[2022-03-16] MEDS: ACETAMINOPHEN 500 MG TABLET 1000 MG PO (04:23)
[2022-03-16] MEDS: polyethylene glycoL 3350 17 GM PACK PO (04:23)
[2022-03-16] MEDS: LABETALOL HCL 100 MG TABLET 400 MG PO (05:00)
[2022-03-16 06:21] LABS: Hematocrit 35.3 % (33.0-51.0); Hemoglobin* 11.7 gm/dL (12.0-16.0); Mean Corpuscular HGB Conc 33 gm/dL (32-36); Mean Corpuscular Hemoglobin 32 pg (26-34); Mean Corpuscular Volume 95 fL (80-100); Platelet Count* 378 K/uL (140-440); White Blood Count* 7.84 K/uL (4.50-11.00)
[2022-03-16 06:30] LABS: Slide Review Reflex No
[2022-03-16 06:42] LABS: Alanine Aminotransferase* 65 U/L (4-35); Aspartate Amino Transferase* 48 U/L (12-35); Creatinine* 0.6 mg/dL (0.5-1.5); Estimated Glomerular Filt Rate 113 ml/min
[2022-03-16 06:43] LABS: Blood Urea Nitrogen* 12 mg/dL (5-24)
[2022-03-16] MEDS: LEVOTHYROXINE 125 MCG TABLET PO (07:16)
[2022-03-16 07:20] VITALS: BP 124/82
[2022-03-16 07:56] VITALS: BP 106/65; PULSE 79; RESP 16; TEMP 36.6; O2SAT 97
[2022-03-16] MEDS: DOCUSATE SODIUM 100 MG CAPSULE PO (09:25)
[2022-03-16] MEDS: guaiFENesin 600 MG TAB.ER.12H 1200 MG PO (09:25)
[2022-03-16] MEDS: FAMOTIDINE 20 MG TABLET PO (09:26)
[2022-03-16] MEDS: NIFEdipine 30 MG TAB.ER.24 PO (09:26)
[2022-03-16 09:31] VITALS: BP 135/92; PULSE 74; RESP 16; TEMP 36.8; O2SAT 98
--- NOTE | 2022-03-16 10:11 | PM.OBDSCS1 ---
DS: Providers Provider Date Seen: 03/16/22 Date of admission: 03/10/22 18:25 Primary care physician: Anais Joya MD Admitting Clinician: Eleanor Craft MD Attending Physician on discharge: Katherine De La Fuente MD Date of Discharge: 03/16/22 DS: Diagnosis Discharge Diagnosis (1) Pre-eclampsia superimposed on chronic hypertension: Status: Acute Problem details: Severe preeclampsia. Received 24 hours of IV magnesium sulfate. (2) Hypothyroidism: Status: Acute Problem details: Contain on levothyroxine 125 mcg daily (3) musculoskeletal anomaly: Status: Acute Problem details: Short femurs (4) S/P section: Status: Acute Problem details: For indication of arrest of dilation in the setting of induction of labor for preeclampsia Exam Narrative: Exam Narrative: General: Pleasant, no acute distress Heart: Regular rate and rhythm, no murmur or gallop Lungs: Clear to auscultation bilaterally Abdomen: Normoactive bowel sounds in all 4 quadrants. Soft, nontender, fundus well below umbilicus. Incision clean, dry, and intact Lower extremities: 2+ edema in bilateral ankles, no erythema Const: Vital Signs, click to edit/add: Vital Signs - 24 hr 03/15/22 11:52 03/15/22 16:18 03/15/22 17:30 Temperature 97.4 F L 98.1 F 98.1 F Pulse Rate [Bilate ral Radial] 74 77 Respiratory Rate 16 16 18 Blood Pressure 142/90 H Blood Pressure [Le ft Arm] 127/85 142/90 H Pulse Oximetry 97 98 98 03/15/22 20:50 03/16/22 00:40 03/16/22 04:00 Temperature 98.3 F 98.4 F 98.4 F Pulse Rate [Bilate ral Radial] 84 92 76 Respiratory Rate 16 14 16 Blood Pressure Blood Pressure [Le ft Arm] 152/97 H 151/92 H 154/95 H Pulse Oximetry 99 98 98 03/16/22 07:20 03/16/22 07:56 03/16/22 09:31 Temperature 97.9 F 98.3 F Pulse Rate [Bilate ral Radial] 79 74 Respiratory Rate 16 16 Blood Pressure Blood Pressure [Le ft Arm] 124/82 106/65 135/92 H Pulse Oximetry 97 98 DS: Data Data Completed and Pending Labs on day of discharge: Labs from last 24 hours 03/16/22 03/16/22 03/15/22 06:10 06:10 07:28 WBC 7.84 RBC 3.70 L Hgb 11.7 L Hct 35.3 MCV 95 MCH 32 MCHC 33 Plt Count 378 BUN 12 Creatinine 0.6 Estimated GFR 113 AST 48 H ALT 65 H Surg PTH (Off-Site) Screen Negative 03/11/22 03/11/22 22:01 21:37 WBC RBC Hgb Hct MCV MCH MCHC Plt Count BUN Creatinine Estimated GFR AST ALT Surg PTH (Off-Site) See Scanned Report Screen Negative OB - DS: Summary Hospital Course Hospital Course: The patient is a 46 year old G 1 P 0 woman who was admitted at 37 weeks, 0 days gestation on 03/10/22 for induction of labor for indication of preeclampsia. She ultimately had a for arrest of dilation on 03/11/2022. She had an uncomplicated delivery. She delivered a viable male . She is breast feeding. , she developed severe preeclampsia with severe range blood pressure elevation and elevated transaminases. She was given magnesium sulfate for seizure prophylaxis. This delayed her discharge. Since cessation of magnesium, she has been maintained on labetalol 400 mg t.i.d. and nifedipine ER 30 mg q.a.m.. Overnight last night, systolics were persistently in the 150s. This is despite nifedipine ER 30 mg yesterday morning. Today, on day 5, she is anxious to go home. She is having bowel movements. She is tolerating regular diet. She is not using oxycodone. Denies any headache, visual changes, right upper quadrant pain. Ob problem list: 1. Conceived through IVF at [facility] Donor egg.? Age 22 Genetic testing done prior to IVF transfer.? BOY! 2.? Chronic Hypertension: was taking Nifedipine.? Switched to Labetalol 100mg BID at first OB visit. Pre E labs:? Normal AST:? 23 ALT:? 20 Protein/creatinine ratio:? 0.19 Labetalol increased to 150 mg twice daily on 10/29/2021 *BP noted to be 147/97 and 152/99 at [facility] appt on 02/21/22.? Labs done, all normal (P/C 0.2, plts 298, Hgb 12, ALT 36, Cr 0.67). Growth ultrasound q.4 weeks starting at 32 weeks BPP or NST starting at 32 weeks. Worsening hypertension noted at 37 weeks.? Sent to Center for induction of labor. 3.? Hypothyroidism: TSH 1st trit 1.55, 2nd tri 2.6, 3rd tri 1.35.? Levothyroxine 125 mcg throughout . 4.? AMA Level 2 u/s:? 11/09/2021.? heart not well visualized, femur bones disparity in size and appearance, worrisome for skeletal dysplasia.? Marginal cord insertion. *Referral to [facility] for echo and further evaluation:? Initial evaluation done on 11/16/2021.? Confirmed short left femur, angulated right femur, and no other structural abnormalities.? 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 Recommended follow-up ultrasound for growth in 4 weeks and echocardiogram with pediatric cardiology to address possible variant in heart position (scheduled): * echo:? 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 NO ADVERSE HEMODYNAMIC EFFECT.? Recommend echo and outpatient cardiology cisit within first 6 months of life. *Growth ultrasounds q4 weeks:? 12/16/21 EFW 681 g (19%), SDP 4.7cm *Growth US 01/17/22: EFW 1453g (45%), L FL 5% and bent.? Rec: f/u US in 4-6 wks *02/02/2022 US: BPP 8/8, Vtx, SDP 5.4cm. EFW 1698g, [id number], 18%.? BPD 81%, HC 96%, AC 69%, FL<3% *02/21/22 US: EFW 2433g (44%), BPD/HC 94->97%, femurs <3% and abnormally shaped.? BPP/NST 05/29.? Patient reportedly has Appt with [facility] on 02/24/22. * 02/21/22 Preeclampsia labs at [facility]: Hgb: 12.0, Plts: 298K, ALT 36, (no AST), Creat: 0.67. Urine P/C ratio: 0.20. *Weekly NST starting 33wks *Recommend delivery at 39-40 weeks.? Cleared by [facility] to deliver at [facility]. Recommended Genome sequencing baby after , [facility] recommended immediately because it takes a month or longer after . [facility] said this lab is sent out and should be done as soon as possible to help direct orthopedic management options. 5. H/o abnormal pap starting in 2007, LEEP in 12/2016: LSIL; colp: MIRANDA 1 01/2018: NIL, +HPV; colp: MIRANDA 1, neg ECC Pap 09/16/21: NIL, neg HPV 6. BMI 29.2 A1C 4.9% 7. Initial OB ultrasound showed 3 leiomyomas measuring 3.9x3.8x3.4cm, 3.8x3.4x3.9cm, and 3.9x3.2x3.5cm 8. H/o HSV.? Valtrex 500 mg b.i.d. beginning 36 weeks. 9.? Rh-negative RhoGAM:? 01/05/2022. 10. Mild anemia, hemoglobin 10.8 Ferrous sulfate Peripartum Data Procedures: Procedures Operation Date: 03/11/22 21:15 Actual Procedure Side Surgeon p Section Not Applicable Marilynn Robles MD Gender: Male Time Spent with Patient Time attestation: Total time spent providing and/or coordinating discharge services: Time spent: Greater than 30 minutes Discharge Plan Discharge Disposition: Home, Self-Care Date of Admission: 03/10/22 18:25 Attending Provider on Discharge: Katherine De La Fuente Primary Care Provider: Anais Joya Condition: Stable Anticipated Discharge Date/Time: 03/15/22 12:39 Discharge Medications: New docusate sodium 100 mg Capsule 100 mg PO BID PRN30 Days Qty: 30 0RF nifedipine 30 mg Tablet Extended Release 24 Hr 30 mg PO BID 30 Days Qty: 60 0RF ibuprofen 600 mg Tablet 600 mg PO Q6H PRN (Reason: Pain) 30 Days Qty: 60 0RF oxycodone 5 mg Tablet 5 - 10 mg PO Q4H PRN (Reason: Pain) 15 Days Qty: 15 0RF labetalol 200 mg tablet 400 mg PO TID Qty: 180 3RF acetaminophen 500 mg Tablet 1,000 mg PO Q6H PRN (Reason: Pain) Qty: 0 0RF Continued prenat.vits,jose,jod-uqwa-eondn Tablet 1 tab PO QDAY 0RF levothyroxine 125 mcg tablet 125 mcg PO DAILY 0RF cholecalciferol (vitamin D3) 25 mcg (1,000 unit) tablet 2,000 unit PO DAILY 0RF Discontinued ferrous sulfate 325 mg (65 mg iron) tablet 325 mg PO DAILY 0RF valacyclovir 500 mg tablet 500 mg PO .Daily as needed PRN0RF aspirin 81 mg tablet,chewable 81 mg PO DAILY 0RF labetalol 100 mg tablet 150 mg PO BID 0RF Discharge Orders: Discharge Order (Routine); Ordered 03/16/22 Ordered By: Katherine De La Fuente Patient Education: OB /Breast Feeding Activity Restrictions/Additional Instructions: Discharge instructions were reviewed with the patient including signs and symptoms of infection and home going medications. Lifting Restrictions:20 pounds for 6 weeks Nothing vaginally for 6 weeks: no tampons or intercourse. Do not drive while taking narcotic pain medication(s). Off Work or School for 8 weeks. Symptoms to report to doctor: -Bleeding that saturates more than one pad per hour ?-Passing clots larger than the size of a golf ball ?-Pain not relieved by prescribed medication ?-Fever above 100.4 degrees Fahrenheit ?-A foul vaginal odor ?-Difficulty in emotions, mood and functions ?-Thoughts of hurting yourself and/or ?-Painful, reddened area in your breast ?-Any drainage, redness or tenderness in your IV/epidural site ?-Severe headache that doesn't improve after taking medications ?-Changes in vision, including temporary loss of vision, blurred vision, and/or light sensitivity ?-Upper abdominal pain (usually under ribs on the right side) ?-Decrease in urination or painful, frequent urinating ?-Chest pain ?-Shortness of breath ?-Tenderness or pain with redness and/swelling in the calf(s) of your leg Follow Up in the [facility] for a BP check Sunday or Sunday. Call with BP greater than or equal to 160/110 Optional 2 week visit: incision check, discuss infant feeding concerns, review control options and screen for anxiety/depression. 6 week visit for an annual exam. consultation services are available to all mothers and babies for the first year after delivery.? To make an appointment, please call [phone]. Activity Detail: No not submerge incision under water X 2 weeks. Discharge Diet: Regular Follow Up Appointments: Glenys Cruz CNM [Certified Nurse Entry Level Chemist] - Vianey Segura CNM [Certified Nurse Entry Level Chemist] - Berna Kaur CNP [Nurse Practitioner] - Erlinda Dunlap CNM [Certified Nurse Entry Level Chemist] - Autumn Brown CNM [Certified Nurse Entry Level Chemist] - MaritzaEleanor De Dios MD [Staff Physician] - Ashley Morel PA-C [Physician Parking Station Attendant] - Katherine De La Fuente MD [Staff Physician] - (or other provider in [facility]) Anais Joya MD [Primary Care Provider] - Marilynn Robles MD [Staff Physician] - Forms: [employer] Info Instructions
== END 2022-03-16 11:42 | disposition home or self-care (01) | DRG 540 ==
PROVIDERS: Obstetrics & Gynecology; Admitting Provider Obstetrics & Gynecology; PCP Family Medicine; Visit Provider Obstetrics & Gynecology
PROC: 10D00Z1 Extraction of Products of Conception, Low, Open Approach (ICD-10-PCS; CPT 59514; principal; 2022-03-11 21:00)
DX: O11.4 Pre-existing hypertension with pre-eclampsia, complicating childbirth (principal); O10.92 Unspecified pre-existing hypertension complicating childbirth; O32.4XX0 Maternal care for high head at term, not applicable or unspecified; O62.0 Primary inadequate contractions; O99.284 Endocrine, nutritional and metabolic diseases complicating childbirth; E03.9 Hypothyroidism, unspecified; O35.8XX0 Maternal care for other (suspected) fetal abnormality and damage, not applicable or unspecified; O99.02 Anemia complicating childbirth; D64.9 Anemia, unspecified; O98.32 Other infections with a predominantly sexual mode of transmission complicating childbirth; A60.00 Herpesviral infection of urogenital system, unspecified; Z37.0 Single live birth; Z3A.37 37 weeks gestation of pregnancy
CPT/HCPCS: 01967; 01968; 36415; 59025; 59200; 82550; 82565; 82570; 84156; 84450; 84460; 84520; 85018; 85025; 85027; 85384; 85461; 85610; 86850; 86900; 86901; 87635; 88307; 99140; 99211; A9270; C1726; J0690; J1100; J1885; J2270; J2274; J2370; J2405; J2590; J2791; J2795; J3475; J7120

== ENCOUNTER 2022-03-16 20:17 | Inpatient (IN) | payer BC, SELFPAY ==
[2022-03-16] VITALS (8 sets, daily range): BP systolic 106–186; BP diastolic 75–120; PULSE 64–81; RESP 18; TEMP 36.7; O2SAT 94–99; BMI 32.4
--- NOTE | 2022-03-16 20:39 | ED.GENADULT ---
HPI - General Adult General Chief complaint: High Blood Pressure Stated complaint: High Blood Pressure Time Seen by Provider: 03/16/22 20:21 History of Present Illness HPI narrative: This 46-year-old female comes in with elevated blood pressure. She delivered a baby boy 5 days ago. She just was discharged from the OB service yesterday because of persistent blood pressure related to . Actually she does have pre-existing hypertension. She is currently taking labetalol. She did have a magnesium drip for 24 hours while in the hospital. She does not report any new symptoms. She does not have a headache. She did deliver her baby by so she is recovering from that typically without any complication. Related Data Home Medications Medication Instructions Recorded Confirmed cholecalciferol (vitamin D3) 25 2,000 unit PO DAILY tab 02/17/22 03/16/22 mcg (1,000 unit) tablet levothyroxine 125 mcg tablet 125 mcg PO DAILY 02/17/22 03/16/22 prenat.vits,jose,[id number] 1 tab PO QDAY 02/17/22 03/16/22 Previous Rx's Medication Instructions Recorded acetaminophen 500 mg tablet 1,000 mg PO Q6H PRN #0 tab 03/16/22 docusate sodium 100 mg capsule 100 mg PO BID PRN 30 Days #30 cap 03/16/22 ibuprofen 600 mg tablet 600 mg PO Q6H PRN 30 Days #60 tab 03/16/22 labetalol 200 mg tablet 400 mg PO TID #180 tab 03/16/22 nifedipine 30 mg tablet,extended 30 mg PO BID 30 Days #60 tab 03/16/22 release 24 hr oxycodone 5 mg tablet 5 - 10 mg PO Q4H PRN 15 Days #15 03/16/22 tab Allergies Allergy/AdvReac Type Severity Reaction Status Date / Time ketoconazole Allergy Mild Hives Verified 03/10/22 13:12 nystatin Allergy Mild Hives Verified 03/10/22 13:12 Sulfa (Sulfonamide Allergy Unknown Verified 03/14/22 15:08 Antibiotics) Review of Systems Status of ROS: Reports: 10 or more systems reviewed and unremarkable except as noted in History and below Narrative: Constitutional: No fevers, no weight gain or loss. Eyes: No discharge. No vision changes. HENT: No congestion, no sore throat, no ear pain. Cardiovascular: No chest pain, no palpitations. Respiratory: No shortness of breath, no wheezes, no cough. Gastrointestinal: No vomiting, no diarrhea. Lower abdominal pain secondary to recent delivery by section. Genitourinary: No dysuria, no hematuria. Musculoskeletal: Normal range of motion. Skin: No rashes, no pruritis. Neurological: No dizziness, weakness, sensory change, speech change. Endo/Heme/Allergies: No bruising or bleeding. No polydipsia. Pysch: no suicidality, no anxiety, no insomnia. All other systems reviewed and are negative. 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 She does not smoke, drink alcohol, or use recreational drugs. She and her have many pets Smoking Status: Never smoker How often do you have a drink containing alcohol: never AUDIT-C Alcohol total score: 0 Non-prescribed substance use: denies use Exam Narrative: Exam Narrative: Constitutional: Well-developed, well-nourished, no acute distress. HEENT: Normocephalic, atraumatic. Neck: Normal range of motion. Nontender. Supple. Heart: Intact distal pulses. Lungs: No chest discomfort. No wheezes, rhonchi, or rales. Abdomen: Nontender. Back: Normal range of motion. Extremities: Normal range of motion. No injury. Skin: Intact. No rash. Warm. No erythema or pallor. Neurologic: No altered sensation. No weakness. Alert and oriented. Psychiatric: No suicidality. No anxiety or depression. No insomnia. Nursing notes and vitals signs are reviewed. Const: Vital Signs, click to edit/add: Vital Signs - 24 hr 03/16/22 20:21 Temperature 98.1 F Pulse Rate [Left P ulse Oximeter] 77 Respiratory Rate 18 Blood Pressure [Ri ght Upper Arm] 186/113 H Pulse Oximetry 99 Course Vital Signs Vital signs: Initial Vital Signs Temperature 98.1 F 03/16/22 20:21 Temperature Source Temporal Artery Scan 03/16/22 20:21 Pulse Rate 77 03/16/22 20:21 Respiratory Rate 18 03/16/22 20:21 Blood Pressure 186/113 H 03/16/22 20:21 Blood Pressure Mean 137 03/16/22 20:21 Blood Pressure Position Sitting 03/16/22 20:21 Pulse Oximetry 99 03/16/22 20:21 Oxygen Delivery Method 03/16/22 20:21 Vital Signs Temperature 98.1 F 03/16/22 20:21 Pulse Rate 77 03/16/22 20:21 Respiratory Rate 18 03/16/22 20:21 Blood Pressure 186/113 H 03/16/22 20:21 Pulse Oximetry 99 03/16/22 20:21 Temperature 98.1 F 03/16/22 20:21 Pulse Rate 77 03/16/22 20:21 Respiratory Rate 18 03/16/22 20:21 Blood Pressure 186/113 H 03/16/22 20:21 Pulse Oximetry 99 03/16/22 20:21 Medical Decision Making MDM Narrative Medical decision making narrative: This patient comes in with elevated blood pressure or at 5 days . She does have pre-existing hypertension but yet is in the preeclampsia time frame. I did speak with the service parts driver on-call, Dr. De La Fuente, who will arrange for her admission to receive labetalol and nifedipine. Lab results today returned with reassuring findings. The patient does not report any new symptoms beyond typical recovery from section. Lab Data Labs: Lab Results 03/16/22 03/16/22 03/16/22 Range/Units 21:00 21:00 21:00 WBC 8.65 (4.50-11.00) K/uL RBC 3.69 L (4.00-5.20) m/uL Hgb 11.6 L (12.0-16.0) gm/dL Hct 34.8 (33.0-51.0) % MCV 94 (80-100) fL MCH 31 (26-34) pg MCHC 33 (32-36) gm/dL RDW Coeff of Roni 13.2 (11.5-15.5) % Plt Count 414 (140-440) K/uL Neut % (Auto) 73.7 H (42.0-72.0) % Lymph % (Auto) 17.3 L (20-44) % [place] % (Auto) 6.1 (0.0-11.0) % Eos % (Auto) 2.0 (0.0-7.0) % Baso % (Auto) 0.3 (0.0-3.0) % Neut # (Auto) 6.40 (1.7-7.0) K/uL Lymph # (Auto) 1.50 (0.90-2.90) K/uL [place] # (Auto) 0.50 (0.00-0.90) K/UL Eos # (Auto) 0.17 (0.00-0.50) K/uL Baso # (Auto) 0.03 (0.00-0.30) K/uL Abs Immat Gran (auto) 0.05 (0.00-0.30) K/uL Sodium 136 (135-149) mmol/L Potassium 4.1 (3.6-5.1) mmol/L Chloride 109 (96-114) mmol/L Carbon Dioxide 21 (20-32) mmol/L BUN 14 (5-24) mg/dL Creatinine 0.7 (0.5-1.5) mg/dL Estimated Creat Clear 87.64 Estimated GFR 109 ml/min Glucose 126 H (60-115) mg/dL Calcium 8.6 (8.4-10.6) mg/dL Urine Color Yellow (Yellow) Urine Appearance Clear (Clear) Urine pH 6.0 (5.0-8.5) Ur Specific [place] 1.010 (1.000-1.030) Urine Protein Negative (Negative) Urine Glucose (UA) Negative (Negative) Urine Ketones Negative (Negative) Urine Blood 2+ A (Negative) Urine Nitrite Negative (Negative) Urine Bilirubin Negative (Negative) Urine Urobilinogen 0.2 (0.2-1.0) Ur Leukocyte Esterase Negative (Negative) Urine RBC 2-5 A (0-2) Urine WBC 2-5 (0-5) Ur Squamous Epith Cells None (None-Few) Urine Bacteria None (None) Discharge Plan Discharge Clinical Impression: Pre-eclampsia superimposed on chronic hypertension Patient Disposition: Admitted As Inpatient Condition: Unchanged Prescriptions: No Action prenat.vits,jose,xlv-kjgr-[id number] Tablet 1 tab PO QDAY 0RF levothyroxine 125 mcg tablet 125 mcg PO DAILY 0RF cholecalciferol (vitamin D3) 25 mcg (1,000 unit) tablet 2,000 unit PO DAILY 0RF acetaminophen 500 mg Tablet 1,000 mg PO Q6H PRN (Reason: Pain) Qty: 0 0RF docusate sodium 100 mg Capsule 100 mg PO BID PRN30 Days Qty: 30 0RF nifedipine 30 mg Tablet Extended Release 24 Hr 30 mg PO BID 30 Days Qty: 60 0RF ibuprofen 600 mg Tablet 600 mg PO Q6H PRN (Reason: Pain) 30 Days Qty: 60 0RF oxycodone 5 mg Tablet 5 - 10 mg PO Q4H PRN (Reason: Pain) 15 Days Qty: 15 0RF labetalol 200 mg tablet 400 mg PO TID Qty: 180 3RF Follow Up/Referrals: Anais Joya MD [Primary Care Provider] -
[2022-03-16 21:08] LABS: Basophils Absolute Auto 0.03 K/uL (0.00-0.30); Basophils Percent Auto 0.3 % (0.0-3.0); Eosinophils Absolute Auto 0.17 K/uL (0.00-0.50); Hematocrit 34.8 % (33.0-51.0); Hemoglobin* 11.6 gm/dL (12.0-16.0); Immature Granulocytes Abs Auto 0.05 K/uL (0.00-0.30); Lymphocytes Percent Auto 17.3 % (20-44); Mean Corpuscular HGB Conc 33 gm/dL (32-36); Mean Corpuscular Hemoglobin 31 pg (26-34); Mean Corpuscular Volume 94 fL (80-100); Monocytes Percent Auto 6.1 % (0.0-11.0); Neutrophils Percent Auto 73.7 % (42.0-72.0); Platelet Count* 414 K/uL (140-440); RDW Coefficient of Variation % 13.2 % (11.5-15.5); Red Blood Count 3.69 m/uL (4.00-5.20); White Blood Count* 8.65 K/uL (4.50-11.00)
[2022-03-16 21:09] LABS: Appearance Urine Clear (Clear); Bilirubin Urine Negative (Negative); Blood Urine 2+ (Negative); Color Urine Yellow (Yellow); Glucose Urine Negative (Negative); Ketones Urine Negative (Negative); Leukocyte Esterase Urine Negative (Negative); Nitrite Urine Negative (Negative); Protein Urine Negative (Negative); Slide Review Reflex No; Urobilinogen Urine 0.2 (0.2-1.0)
[2022-03-16 21:22] LABS: Chloride* 109 mmol/L (96-114); Potassium* 4.1 mmol/L (3.6-5.1); Sodium* 136 mmol/L (135-149)
[2022-03-16 21:25] LABS: Blood Urea Nitrogen* 14 mg/dL (5-24); Calcium* 8.6 mg/dL (8.4-10.6); Carbon Dioxide* 21 mmol/L (20-32); Creatinine* 0.7 mg/dL (0.5-1.5); Est. Creatinine Clearance* 87.64; Estimated Glomerular Filt Rate 109 ml/min; Glucose* 126 mg/dL (60-115)
--- NOTE | 2022-03-16 21:49 | W.PC.EDHO ---
Primary Language: Preferred Language: Orientation Status: [x] Alert & Oriented [] Slight Confusion [] Known Dx Dementia Transfers By: [x] Assist of 1 [] Assist of 2 [] Lift Description of Symptoms ED Triage Present Problem was tx for pre eclampsia in our hospital, baby Description born 03/11, pt was d/c'd to home today. bp reading at home this sinan 160/97, denies symptoms ED Triage Date of Onset of 03/16/22 Symptoms Female History Patient No IV Insertion/Site Date of IV Line Insertion [ 03/16/22 Left Forearm] Oxygen Administration Pulse Oximetry 99 Oxygen Delivery Method Room Air
--- NOTE | 2022-03-16 21:52 | W.PM.LDBA ---
Subjective History of Present Illness Date Seen: 03/16/22 Narrative: Patient is being admitted to Labor and Delivery for management of severe hypertension She is a 46 year old who is 5 days status post primary low-transverse section for arrest of dilation. She had severe preeclampsia superimposed upon chronic hypertension. She was treated with 24 hours of IV magnesium sulfate infusion . She did have diuresis while on magnesium. She had a transient increase in transaminases, but otherwise had normal creatinine and platelets. She had continuation of elevated blood pressures after discontinuation of magnesium. Today, she was discharge, after having gone more than 24 hours with out having treatment of severe hypertension. At time of discharge, she was maintained on labetalol 400 mg t.i.d. and nifedipine ER 30 mg b.i.d.. Unfortunately, she called this evening with recurrence of severely elevated blood pressures. Her systolic blood pressure was 100 80s, diastolics 110s. Here, in the ER, her blood pressure continues to be elevated. Ob problem list: 1. Conceived through IVF at [facility] Donor egg. Age 22 Genetic testing done prior to IVF transfer. BOY! 2. Chronic Hypertension: was taking Nifedipine. Switched to Labetalol 100mg BID at first OB visit. Pre E labs: Normal AST: 23 ALT: 20 Protein/creatinine ratio: 0.19 Labetalol increased to 150 mg twice daily on 10/29/2021 *BP noted to be 147/97 and 152/99 at [facility] appt on 02/21/22. Labs done, all normal (P/C 0.2, plts 298, Hgb 12, ALT 36, Cr 0.67). Growth ultrasound q.4 weeks starting at 32 weeks BPP or NST starting at 32 weeks. Worsening hypertension noted at 37 weeks. Sent to Center for induction of labor. 3. Hypothyroidism: TSH 1st trit 1.55, 2nd tri 2.6, 3rd tri 1.35. Levothyroxine 125 mcg throughout . 4. AMA Level 2 u/s: 11/09/2021. heart not well visualized, femur bones disparity in size and appearance, worrisome for skeletal dysplasia. Marginal cord insertion. *Referral to [facility] for echo and further evaluation: Initial evaluation done on 11/16/2021. Confirmed short left femur, angulated right femur, and no other structural abnormalities. 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 NO ADVERSE HEMODYNAMIC EFFECT. Recommend echo and outpatient cardiology cisit within first 6 months of life. *Growth ultrasounds q4 weeks: 12/16/21 EFW 681 g (19%), SDP 4.7cm *Growth US 01/17/22: EFW 1453g (45%), L FL 5% and bent. Rec: f/u US in 4-6 wks *02/02/2022 US: BPP 8/8, Vtx, SDP 5.4cm. EFW 1698g, 2rm82ua, 18%. BPD 81%, HC 96%, AC 69%, FL<3% *02/21/22 US: EFW 2433g (44%), BPD/HC 94->97%, femurs <3% and abnormally shaped. BPP/NST 05/29. Patient reportedly has Appt with [facility] on 02/24/22. * 02/21/22 Preeclampsia labs at [facility]: Hgb: 12.0, Plts: 298K, ALT 36, (no AST), Creat: 0.67. Urine P/C ratio: 0.20. *Weekly NST starting 33wks *Recommend delivery at 39-40 weeks. Cleared by [facility] to deliver at [facility]. Recommended Genome sequencing baby after , [facility] recommended immediately because it takes a month or longer after . [facility] said this lab is sent out and should be done as soon as possible to help direct orthopedic management options. 5. H/o abnormal pap starting in 2007, LEEP in 12/2016: LSIL; colp: MIRANDA 1 01/2018: NIL, +HPV; colp: MIRANDA 1, neg ECC Pap 09/16/21: NIL, neg HPV 6. BMI 29.2 A1C 4.9% 7. Initial OB ultrasound showed 3 leiomyomas measuring 3.9x3.8x3.4cm, 3.8x3.4x3.9cm, and 3.9x3.2x3.5cm 8. H/o HSV. Valtrex 500 mg b.i.d. beginning 36 weeks. 9. 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 10. Mild anemia, hemoglobin 10.8 Ferrous sulfate Her full history and physical is otherwise unchanged from time of discharge this morning. Review of systems: No headache No visual changes No right upper quadrant pain No chest pain new line no shortness of breath Slight lower extremity edema Slight increase in vaginal bleeding No pain OB - H&P: Exam Physical Exam: Vital signs: Temp Pulse Resp BP Pulse Ox 98.1 F 77 18 186/113 H 99 03/16/22 20:21 03/16/22 20:21 03/16/22 20:21 03/16/22 20:21 03/16/22 20:21 Narrative: Physical exam: General: No acute distress Psych: Alert and oriented x3, full affect HEENT: Normocephalic, atraumatic Heart: Regular rate and rhythm, no murmur rub or gallop Lungs: Clear to auscultation bilaterally Abdomen: Normoactive bowel sounds, soft, no tenderness, rebound, or guarding, uterus 2 cm below umbilicus, incision clean, dry, and intact Skin: No lesions or rashes Lower extremities: No edema or erythema OB - Problem Based A/P Additional Plan (1) Pre-eclampsia superimposed on chronic hypertension: Problem details: Severe preeclampsia. Received 24 hours of IV magnesium sulfate. Status: Acute (2) S/P section: Problem details: For indication of arrest of dilation in the setting of induction of labor for preeclampsia Status: Acute Plan 46-year-old woman, , now 5 days status post primary delivery. Recurrence of severe we elevated blood pressure despite 2 anti hypertensive medicines. Change nifedipine ER to 60 mg a.m., 30 mg p.m.. Increase labetalol to 500 mg q.8 hours. Maintain inpatient hospitalization until no need for IV antihypertensives for 24 hours.
[2022-03-16 22:04] LABS: Albumin* 3.4 g/dL (3.3-5.0)
[2022-03-16 22:07] LABS: Alanine Aminotransferase* 50 U/L (4-35); Alkaline Phosphatase* 111 U/L (40-150); Aspartate Amino Transferase* 39 U/L (12-35); Bilirubin Direct* 0.1 mg/dL (0.0-0.5); Bilirubin Total* 0.1 mg/dL (0.1-1.5); Total Protein* 6.7 g/dL (6.0-8.3)
[2022-03-16 22:56] LABS: SARS PCR* Negative SARS-CoV-2 (Negative)
[2022-03-16] MEDS: LABETALOL HCL 100 MG TABLET 500 MG PO (23:05)
[2022-03-16] MEDS: NIFEdipine 10 MG CAPSULE 30 MG PO (23:06)
[2022-03-17] VITALS (46 sets, daily range): BP systolic 84–182; BP diastolic 54–114; PULSE 66–88; RESP 16–20; TEMP 36.4–36.6; O2SAT 98–100
[2022-03-17] MEDS: LABETALOL HCL 100 MG TABLET 500 MG PO (08:24)
[2022-03-17] MEDS: NIFEdipine 10 MG CAPSULE 60 MG PO (08:25)
--- NOTE | 2022-03-17 11:53 | PM.OBPNCS1 ---
OB - PN: A/P Assessment and Plan (1) Pre-eclampsia superimposed on chronic hypertension: Problem details: Severe preeclampsia. Received 24 hours of IV magnesium sulfate. Status: Acute Assessment and Plan: Asymptomatic. Last AST and ALT trending down. Continue nifedipine ER QD, and labetalol PO TID, adjusting dose as needed to control BP. Will repeat CBC, CMP tomorrow morning. (2) S/P section: Problem details: For indication of arrest of dilation in the setting of induction of labor for preeclampsia. Appropriate recovery. Comfortable with OTC ibuprofen. Status: Acute Assessment and Plan: Routine care. Plan day: 6 OB - PN: Subj Subjective Time Seen by Provider: 11:53 Date Seen: 03/17/22 Interval history: Patient readmitted for BP management, 6d after PLTCS for arrest of dilation during IOL 37w for preeclampsia without severe symptoms superimposed on cHTN. Narrative: Malini was discharged after recovery from with prescriptions for nifedipine ER 30mg PO QD, and labetalol 400mg PO TID. She had no new symptoms at home, but after an elevated home BP reading, she came to ED for further evaluation. She was admitted last night with severe BP. This morning her scheduled labetalol was given. About the same time, she received short-acting nifedipine; subsequently she felt presyncopal. This feeling resolved after some rest and PO fluids. She has no further concerns or symptoms, other than anxiety about the cause of elevated BP yesterday. Her infant son is well. OB - PN: Obj Exam Physical Exam: Vital signs: Temp Pulse Resp BP Pulse Ox 97.8 F 77 16 104/66 97 03/17/22 03:35 03/17/22 10:07 03/17/22 03:35 03/17/22 10:07 03/16/22 23:15 Constitutional: Constitutional: no acute distress and obese Routine Respiratory Exam: Comments: Normal respiratory effort and rate. No accessory muscle use, cough, or wheeze. Routine Cardiovascular Exam: Cardiovascular: Present RRR Comments: Normal pedal pulses. No peripheral edema. Routine Neurological Exam: Neurological: Present alert, CN II-XII intact, normal reflexes, moving all extremities, normal tone and normal speech Routine Psychiatric Exam: Psychiatric: Present cooperative Comments: Somewhat anxious affect. OB - PN: Obj Data Labs Labs: Laboratory Results - last 24 hr 03/16/22 03/16/22 03/16/22 21:00 21:00 21:00 WBC 8.65 RBC 3.69 L Hgb 11.6 L Hct 34.8 MCV 94 MCH 31 MCHC 33 RDW Coeff of Roni 13.2 Plt Count 414 Neut % (Auto) 73.7 H Lymph % (Auto) 17.3 L [place] % (Auto) 6.1 Eos % (Auto) 2.0 Baso % (Auto) 0.3 Neut # (Auto) 6.40 Lymph # (Auto) 1.50 [place] # (Auto) 0.50 Eos # (Auto) 0.17 Baso # (Auto) 0.03 Abs Immat Gran (auto) 0.05 Sodium 136 Potassium 4.1 Chloride 109 Carbon Dioxide 21 BUN 14 Creatinine 0.7 Estimated Creat Clear 87.64 Estimated GFR 109 Glucose 126 H Calcium 8.6 Total Bilirubin Direct Bilirubin AST ALT Alkaline Phosphatase Total Protein Albumin Urine Color Yellow Urine Appearance Clear Urine pH 6.0 Ur Specific [place] 1.010 Urine Protein Negative Urine Glucose (UA) Negative Urine Ketones Negative Urine Blood 2+ A Urine Nitrite Negative Urine Bilirubin Negative Urine Urobilinogen 0.2 Ur Leukocyte Esterase Negative Urine RBC 2-5 A Urine WBC 2-5 Ur Squamous Epith Cells None Urine Bacteria None SARS-CoV-2 (PCR) 03/16/22 03/16/22 21:00 21:55 WBC RBC Hgb Hct MCV MCH MCHC RDW Coeff of Roni Plt Count Neut % (Auto) Lymph % (Auto) [place] % (Auto) Eos % (Auto) Baso % (Auto) Neut # (Auto) Lymph # (Auto) [place] # (Auto) Eos # (Auto) Baso # (Auto) Abs Immat Gran (auto) Sodium Potassium Chloride Carbon Dioxide BUN Creatinine Estimated Creat Clear Estimated GFR Glucose Calcium Total Bilirubin 0.1 Direct Bilirubin 0.1 AST 39 H ALT 50 H Alkaline Phosphatase 111 Total Protein 6.7 Albumin 3.4 Urine Color Urine Appearance Urine pH Ur Specific [place] Urine Protein Urine Glucose (UA) Urine Ketones Urine Blood Urine Nitrite Urine Bilirubin Urine Urobilinogen Ur Leukocyte Esterase Urine RBC Urine WBC Ur Squamous Epith Cells Urine Bacteria SARS-CoV-2 (PCR) Negative SARS-CoV-2
[2022-03-17] MEDS: LABETALOL HCL 100 MG TABLET 400 MG PO (16:17)
[2022-03-17] MEDS: HYDRALAZINE HCL 20 MG/ML inj IVP ×3 (16:29→21:42)
[2022-03-17] MEDS: NIFEdipine 30 MG TAB.ER.24 PO (21:47)
[2022-03-18] VITALS (13 sets, daily range): BP systolic 113–155; BP diastolic 71–93; PULSE 69–80; RESP 16–18; TEMP 36.7–36.9; O2SAT 96–99
[2022-03-18] MEDS: LABETALOL HCL 100 MG TABLET 400 MG PO ×3 (00:30→18:36)
--- NOTE | 2022-03-18 02:24 | PC.NURSE ---
At 2250 Dr Burnett arrived on the OB unit. Report given to MD with specific attention to patients blood pressures and medications given. RN was instructed by Dr. Burnett to no longer treat elevated blood pressures according to the Elevated Blood Pressure Pathways. RN was instructed to monitor blood pressures and to give schedule 0030 Labetalol. MD stated that this is chronic hypertension. Will continue to monitor and update MD as necessary.
[2022-03-18 06:03] LABS: Albumin* 3.3 g/dL (3.3-5.0); Chloride* 106 mmol/L (96-114); Potassium* 3.6 mmol/L (3.6-5.1); Sodium* 135 mmol/L (135-149)
[2022-03-18 06:05] LABS: Creatinine* 0.7 mg/dL (0.5-1.5); Est. Creatinine Clearance* 87.64; Estimated Glomerular Filt Rate 109 ml/min
[2022-03-18 06:06] LABS: Alanine Aminotransferase* 53 U/L (4-35); Alkaline Phosphatase* 98 U/L (40-150); Aspartate Amino Transferase* 43 U/L (12-35); Bilirubin Total* 0.3 mg/dL (0.1-1.5); Blood Urea Nitrogen* 14 mg/dL (5-24); Calcium* 8.4 mg/dL (8.4-10.6); Carbon Dioxide* 22 mmol/L (20-32); Glucose* 110 mg/dL (60-115); Total Protein* 6.5 g/dL (6.0-8.3)
[2022-03-18 06:38] LABS: Basophils Absolute Auto 0.04 K/uL (0.00-0.30); Basophils Percent Auto 0.6 % (0.0-3.0); Eosinophils Percent Auto 3.1 % (0.0-7.0); Hematocrit 36.2 % (33.0-51.0); Immature Granulocytes Abs Auto 0.11 K/uL (0.00-0.30); Lymphocytes Absolute Auto 1.51 K/uL (0.90-2.90); Lymphocytes Percent Auto 23.5 % (20-44); Mean Corpuscular HGB Conc 33 gm/dL (32-36); Mean Corpuscular Hemoglobin 31 pg (26-34); Mean Corpuscular Volume 94 fL (80-100); Monocytes Percent Auto 8.6 % (0.0-11.0); Neutrophils Absolute Auto 4.01 K/uL (1.7-7.0); Neutrophils Percent Auto 62.5 % (42.0-72.0); Platelet Count* 469 K/uL (140-440); RDW Coefficient of Variation % 13.1 % (11.5-15.5); Red Blood Count 3.87 m/uL (4.00-5.20); White Blood Count* 6.42 K/uL (4.50-11.00)
[2022-03-18 06:57] LABS: Slide Review Reflex No
[2022-03-18] MEDS: NIFEdipine 30 MG TAB.ER.24 PO ×2 (08:58→21:04)
--- NOTE | 2022-03-18 12:00 | PM.OBPNCS1 ---
OB - PN: A/P Assessment and Plan (1) Pre-eclampsia superimposed on chronic hypertension: Problem details: Severe preeclampsia. Received 24 hours of IV magnesium sulfate. Status: Acute (2) S/P section: Problem details: For indication of arrest of dilation in the setting of induction of labor for preeclampsia. Appropriate recovery. Comfortable with OTC ibuprofen. Status: Acute (3) Chronic hypertension: Problem details: Patient readmitted for BP management, 6d after PLTCS for arrest of dilation during IOL 37w for preeclampsia without severe symptoms superimposed on cHTN. Malini was discharged after recovery from with prescriptions for nifedipine ER 30mg PO QD, and labetalol 400mg PO TID.? She had no new symptoms at home, but after an elevated home BP reading, she came to ED for further evaluation, and was subsequently admitted. Yesterday morning short-acting nifedipine given instead of ER; nifedipine ER 30mg PO given last night and this morning.?Inpatient, she continues on labetalol 400mg PO Q8H. Status: Acute Assessment and Plan: BPs since nifedipine last night have been 130s/90s. WBC, hemoglobin/hematocrit, platelets within normal this morning; AST and ALT mildly elevated, stable. Plan Continue loading dose of nifedipine ER with second dose tonight. Consider tapering labetalol somewhat before discharge tomorrow. OB - PN: Subj Subjective Date Seen: 03/18/22 Interval history: Pain well controlled with NSAIDs. Voiding copiously. Normal bowel function. Lochia decreasing. Her son is well. She has no further concerns or symptoms, other than anxiety around management of elevated BP yesterday. OB - PN: Obj Exam Physical Exam: Vital signs: Temp Pulse Resp BP Pulse Ox 98.5 F 75 16 138/91 H 97 03/18/22 08:45 03/18/22 08:45 03/18/22 08:45 03/18/22 08:45 03/18/22 08:45 Constitutional: Constitutional: no acute distress and cooperative Routine Neck Exam: Neck: Present full ROM Routine Respiratory Exam: Comments: Normal respirations. No cough. Routine Cardiovascular Exam: Comments: Regular rate. Normal peripheral pulses, no edema. Routine Extremities Exam: Extremities: Present full ROM Routine Neurological Exam: Neurological: Present alert, CN II-XII intact and normal speech Routine Psychiatric Exam: Psychiatric: Present normal affect, normal thought process and good judgment OB - PN: Obj Data Labs Labs: Laboratory Results - last 24 hr 03/18/22 03/18/22 05:44 05:44 WBC 6.42 RBC 3.87 L Hgb 12.0 Hct 36.2 MCV 94 MCH 31 MCHC 33 RDW Coeff of Roni 13.1 Plt Count 469 H Neut % (Auto) 62.5 Lymph % (Auto) 23.5 [place] % (Auto) 8.6 Eos % (Auto) 3.1 Baso % (Auto) 0.6 Neut # (Auto) 4.01 Lymph # (Auto) 1.51 [place] # (Auto) 0.60 Eos # (Auto) 0.20 Baso # (Auto) 0.04 Abs Immat Gran (auto) 0.11 Sodium 135 Potassium 3.6 Chloride 106 Carbon Dioxide 22 BUN 14 Creatinine 0.7 Estimated Creat Clear 87.64 Estimated GFR 109 Glucose 110 Calcium 8.4 Total Bilirubin 0.3 AST 43 H ALT 53 H Alkaline Phosphatase 98 Total Protein 6.5 Albumin 3.3
[2022-03-19 00:27] VITALS: BP 159/96; RESP 18
[2022-03-19 02:22] VITALS: BP 152/93
[2022-03-19] MEDS: LABETALOL HCL 100 MG TABLET 400 MG PO (02:23)
[2022-03-19 05:57] VITALS: BP 149/91; PULSE 70; RESP 16
[2022-03-19 07:30] VITALS: BP 150/83; PULSE 83; RESP 16; TEMP 36.7; O2SAT 98
[2022-03-19] MEDS: NIFEdipine 30 MG TAB.ER.24 PO (09:06)
--- NOTE | 2022-03-19 09:49 | P.DS_ITS ---
DS: Providers Provider Time Seen by Provider: 09:49 Date Seen: 03/19/22 Date of admission: 03/16/22 22:06 Primary care physician: Anais Joya MD Admitting Clinician: Katherine De La Fuente MD Attending Physician on discharge: Tono Chance MD Date of Discharge: 03/19/22 DS: Diagnosis Discharge Diagnosis (1) Pre-eclampsia superimposed on chronic hypertension: Status: Acute Problem details: Severe preeclampsia. Received 24 hours of IV magnesium sulfate. (2) S/P section: Status: Acute Problem details: Healing very appropriately. Pain controlled with OTC ibuprofen. Lochia light. (3) Chronic hypertension: Status: Acute Problem details: Patient readmitted for BP management, 6d after PLTCS for arrest of dilation during IOL 37w for preeclampsia without severe symptoms superimposed on cHTN. Malini was discharged after recovery from with prescriptions for nifedipine ER 30mg PO BID, and labetalol 400mg PO TID.? She had no new symptoms at home, but after anxiety regarding an elevated home BP reading, she came to ED for further evaluation and was subsequently admitted. DS: Medications Discharge Medications Other Medication Instructions: Nifedipine ER 30 mg p.o. b.i.d. Labetalol 400 mg p.o. t.i.d. Discharge Plan Discharge Disposition: Home, Self-Care Date of Admission: 03/16/22 22:06 Attending Provider on Discharge: Tono Chance Primary Care Provider: Anais Joya Condition: Stable Anticipated Discharge Date/Time: 03/19/22 09:47 Discharge Medications: Continued prenat.vits,jose,dyc-qqjb-pfjlp Tablet 1 tab PO QDAY 0RF levothyroxine 125 mcg tablet 125 mcg PO DAILY 0RF cholecalciferol (vitamin D3) 25 mcg (1,000 unit) tablet 2,000 unit PO DAILY 0RF acetaminophen 500 mg Tablet 1,000 mg PO Q6H PRN (Reason: Pain) Qty: 0 0RF docusate sodium 100 mg Capsule 100 mg PO BID PRN30 Days Qty: 30 0RF nifedipine 30 mg Tablet Extended Release 24 Hr 30 mg PO BID 30 Days Qty: 60 0RF ibuprofen 600 mg Tablet 600 mg PO Q6H PRN (Reason: Pain) 30 Days Qty: 60 0RF labetalol 200 mg tablet 400 mg PO TID Qty: 180 3RF Discontinued oxycodone 5 mg Tablet 5 - 10 mg PO Q4H PRN (Reason: Pain) 15 Days Qty: 15 0RF Discharge Orders: Discharge Order (Routine); Ordered 03/19/22 Ordered By: Tono Chance Patient Education: Chronic Hypertension (DC), OB High Blood Pressure DC Activity Level: Activity as Tolerated and No strenuous activity Activity Detail: 20 weight restriction, nothing heavier than baby in car seat. Discharge Diet: High Fiber Follow Up Appointments: Katherine De La Fuente MD [Staff Physician] - 03/21/22 (Blood pressure check, and management of outpatient antihypertensives.) Anais Joya MD [Primary Care Provider] - Forms: [email or web address] Info Instructions Discharge Comment: Will follow up with provider on Sunday Hospital Course Course Hospital Course: With original discharge dosing, in-patient blood pressures stabilized in the range from 130-150 SBP, and 75-95 DBP. No new preeclampsia symptoms. All laboratory values stable, with AST 39-43 and ALT 50-53. Tolerating regular diet, normal bowel function. Voiding copiously, with diuresis of over 2700 mL. Breast-feeding without difficulty. Pain controlled with ibuprofen alone. Labs Labs: Laboratory Tests 03/18/22 03/18/22 03/16/22 Range/Units 05:44 05:44 21:55 WBC 6.42 (4.50-11.00) K/uL RBC 3.87 L (4.00-5.20) m/uL Hgb 12.0 (12.0-16.0) gm/dL Hct 36.2 (33.0-51.0) % MCV 94 (80-100) fL MCH 31 (26-34) pg MCHC 33 (32-36) gm/dL RDW Coeff of Roni 13.1 (11.5-15.5) % Plt Count 469 H (140-440) K/uL Neut % (Auto) 62.5 (42.0-72.0) % Lymph % (Auto) 23.5 (20-44) % [place] % (Auto) 8.6 (0.0-11.0) % Eos % (Auto) 3.1 (0.0-7.0) % Baso % (Auto) 0.6 (0.0-3.0) % Neut # (Auto) 4.01 (1.7-7.0) K/uL Lymph # (Auto) 1.51 (0.90-2.90) K/uL [place] # (Auto) 0.60 (0.00-0.90) K/UL Eos # (Auto) 0.20 (0.00-0.50) K/uL Baso # (Auto) 0.04 (0.00-0.30) K/uL Abs Immat Gran (auto) 0.11 (0.00-0.30) K/uL Sodium 135 (135-149) mmol/L Potassium 3.6 (3.6-5.1) mmol/L Chloride 106 (96-114) mmol/L Carbon Dioxide 22 (20-32) mmol/L BUN 14 (5-24) mg/dL Creatinine 0.7 (0.5-1.5) mg/dL Estimated Creat Clear 87.64 Estimated GFR 109 ml/min Glucose 110 (60-115) mg/dL Calcium 8.4 (8.4-10.6) mg/dL Total Bilirubin 0.3 (0.1-1.5) mg/dL Direct Bilirubin (0.0-0.5) mg/dL AST 43 H (12-35) U/L ALT 53 H (4-35) U/L Alkaline Phosphatase 98 (40-150) U/L Total Protein 6.5 (6.0-8.3) g/dL Albumin 3.3 (3.3-5.0) g/dL Urine Color (Yellow) Urine Appearance (Clear) Urine pH (5.0-8.5) Ur Specific [employer] [employer] (1.000-1.030) Urine Protein (Negative) Urine Glucose (UA) (Negative) Urine Ketones (Negative) Urine Blood (Negative) Urine Nitrite (Negative) Urine Bilirubin (Negative) Urine Urobilinogen (0.2-1.0) Ur Leukocyte Esterase (Negative) Urine RBC (0-2) Urine WBC (0-5) Ur Squamous Epith Cells (None-Few) Urine Bacteria (None) SARS-CoV-2 (PCR) Negative SARS-CoV-2 (Negative) 03/16/22 03/16/22 03/16/22 Range/Units 21:00 21:00 21:00 WBC (4.50-11.00) K/uL RBC (4.00-5.20) m/uL Hgb (12.0-16.0) gm/dL Hct (33.0-51.0) % MCV (80-100) fL MCH (26-34) pg MCHC (32-36) gm/dL RDW Coeff of Roni (11.5-15.5) % Plt Count (140-440) K/uL Neut % (Auto) (42.0-72.0) % Lymph % (Auto) (20-44) % [place] % (Auto) (0.0-11.0) % Eos % (Auto) (0.0-7.0) % Baso % (Auto) (0.0-3.0) % Neut # (Auto) (1.7-7.0) K/uL Lymph # (Auto) (0.90-2.90) K/uL [place] # (Auto) (0.00-0.90) K/UL Eos # (Auto) (0.00-0.50) K/uL Baso # (Auto) (0.00-0.30) K/uL Abs Immat Gran (auto) (0.00-0.30) K/uL Sodium 136 (135-149) mmol/L Potassium 4.1 (3.6-5.1) mmol/L Chloride 109 (96-114) mmol/L Carbon Dioxide 21 (20-32) mmol/L BUN 14 (5-24) mg/dL Creatinine 0.7 (0.5-1.5) mg/dL Estimated Creat Clear 87.64 Estimated GFR 109 ml/min Glucose 126 H (60-115) mg/dL Calcium 8.6 (8.4-10.6) mg/dL Total Bilirubin 0.1 (0.1-1.5) mg/dL Direct Bilirubin 0.1 (0.0-0.5) mg/dL AST 39 H (12-35) U/L ALT 50 H (4-35) U/L Alkaline Phosphatase 111 (40-150) U/L Total Protein 6.7 (6.0-8.3) g/dL Albumin 3.4 (3.3-5.0) g/dL Urine Color Yellow (Yellow) Urine Appearance Clear (Clear) Urine pH 6.0 (5.0-8.5) Ur Specific [employer] [employer] 1.010 (1.000-1.030) Urine Protein Negative (Negative) Urine Glucose (UA) Negative (Negative) Urine Ketones Negative (Negative) Urine Blood 2+ A (Negative) Urine Nitrite Negative (Negative) Urine Bilirubin Negative (Negative) Urine Urobilinogen 0.2 (0.2-1.0) Ur Leukocyte Esterase Negative (Negative) Urine RBC 2-5 A (0-2) Urine WBC 2-5 (0-5) Ur Squamous Epith Cells None (None-Few) Urine Bacteria None (None) SARS-CoV-2 (PCR) (Negative) 03/16/22 Range/Units 21:00 WBC 8.65 (4.50-11.00) K/uL RBC 3.69 L (4.00-5.20) m/uL Hgb 11.6 L (12.0-16.0) gm/dL Hct 34.8 (33.0-51.0) % MCV 94 (80-100) fL MCH 31 (26-34) pg MCHC 33 (32-36) gm/dL RDW Coeff of Roni 13.2 (11.5-15.5) % Plt Count 414 (140-440) K/uL Neut % (Auto) 73.7 H (42.0-72.0) % Lymph % (Auto) 17.3 L (20-44) % [place] % (Auto) 6.1 (0.0-11.0) % Eos % (Auto) 2.0 (0.0-7.0) % Baso % (Auto) 0.3 (0.0-3.0) % Neut # (Auto) 6.40 (1.7-7.0) K/uL Lymph # (Auto) 1.50 (0.90-2.90) K/uL [place] # (Auto) 0.50 (0.00-0.90) K/UL Eos # (Auto) 0.17 (0.00-0.50) K/uL Baso # (Auto) 0.03 (0.00-0.30) K/uL Abs Immat Gran (auto) 0.05 (0.00-0.30) K/uL Sodium (135-149) mmol/L Potassium (3.6-5.1) mmol/L Chloride (96-114) mmol/L Carbon Dioxide (20-32) mmol/L BUN (5-24) mg/dL Creatinine (0.5-1.5) mg/dL Estimated Creat Clear Estimated GFR ml/min Glucose (60-115) mg/dL Calcium (8.4-10.6) mg/dL Total Bilirubin (0.1-1.5) mg/dL Direct Bilirubin (0.0-0.5) mg/dL AST (12-35) U/L ALT (4-35) U/L Alkaline Phosphatase (40-150) U/L Total Protein (6.0-8.3) g/dL Albumin (3.3-5.0) g/dL Urine Color (Yellow) Urine Appearance (Clear) Urine pH (5.0-8.5) Ur Specific [employer] [employer] (1.000-1.030) Urine Protein (Negative) Urine Glucose (UA) (Negative) Urine Ketones (Negative) Urine Blood (Negative) Urine Nitrite (Negative) Urine Bilirubin (Negative) Urine Urobilinogen (0.2-1.0) Ur Leukocyte Esterase (Negative) Urine RBC (0-2) Urine WBC (0-5) Ur Squamous Epith Cells (None-Few) Urine Bacteria (None) SARS-CoV-2 (PCR) (Negative) OB Problem List Additional Plan (1) Pre-eclampsia superimposed on chronic hypertension: Problem details: Severe preeclampsia. Received 24 hours of IV magnesium sulfate. Status: Acute (2) S/P section: Problem details: Healing very appropriately. Pain controlled with OTC ibuprofen. Lochia light. Status: Acute (3) Chronic hypertension: Problem details: Patient readmitted for BP management, 6d after PLTCS for arrest of dilation during IOL 37w for preeclampsia without severe symptoms superimposed on cHTN. Malini was discharged after recovery from with prescriptions for nifedipine ER 30mg PO BID, and labetalol 400mg PO TID.? She had no new symptoms at home, but after anxiety regarding an elevated home BP reading, she came to ED for further evaluation and was subsequently admitted. Status: Acute DS: Summary Vital Signs Vital Signs: Vital Signs Temp Pulse Resp BP Pulse Ox 03/19/22 07:30 98.1 F 83 16 150/83 H 98 07/31/22 05:57 70 16 149/91 H 03/19/22 02:22 152/93 H 03/19/22 00:27 18 159/96 H 03/18/22 21:00 98.0 F 80 18 154/90 H 99 03/18/22 18:20 155/91 H 03/18/22 15:23 98.3 F 74 16 129/74 97 03/18/22 13:15 75 16 134/80 Discharge Examination General appearance: alert and in no apparent distress
--- NOTE | 2022-03-19 10:14 | PC.NURSE ---
Pt DC'd to home. Went over DC instructions. No further questions or concerns. Pt left hospital ambulatory, stable. No questions or concerns. Paperwork in hand. Will follow up with duong on Sunday
== END 2022-03-19 10:13 | disposition home or self-care (01) | DRG 561 ==
LOC: ED 21:47 → OB 22:08
PROVIDERS: Obstetrics & Gynecology; Admitting Provider Obstetrics & Gynecology; Emergency Provider Emergency Medicine Emergency Medical Services; PCP Family Medicine; Visit Provider Obstetrics & Gynecology
DX: O14.15 Severe pre-eclampsia, complicating the puerperium (principal); O10.93 Unspecified pre-existing hypertension complicating the puerperium; O99.285 Endocrine, nutritional and metabolic diseases complicating the puerperium; E03.9 Hypothyroidism, unspecified
CPT/HCPCS: 36415; 80048; 80053; 80076; 81001; 85025; 87635; 99283; 99284; 99285; A9270; J0360

== ENCOUNTER 2022-04-10 12:51 | Outpatient (CLI) | payer BC, SELFPAY ==
--- NOTE | 2022-04-19 15:22 | P.LACCB_ITS ---
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 Hyde Jaundice: No Reason for Consult Reason for Consult: weight check, help with latch Past Experience Past Experience: No Current Frequency of Day Feedings: every 2 - 4 hours around the clock Both Breasts: Yes (mom offers) Suck: fairly strong Latch: fairly wide Length of Time: mom attempts but he doesn't stay latched for long Pumping Pumping: Yes (with every feeding) Quantity Pumped: 1 oz total Supplementing EMB Supplement: Yes (baby takes 2 - 2.5 oz EBM/formula doroteo 2 - 4 hours) Formula Supplement: Yes Baby Elimination Number of Wet Diapers a Day: with every feeding Number of BM a Day: with almost every feeding; dark green Breast/Nipple Condition Breast Information: WNL Engorgement: No Maternal Nipple Condition - Left: Common Nipple Maternal Nipple Condition - Right: Common Nipple Sore Nipples: No Onsite Pre-Feed weight: 3.418 kg Post-Feed weight: 3.436 kg Milk Transferred (mL): 18 Pre-Nursing Left Nipple: Within Normal Limits Pre-Nursing Right Nipple: Within Normal Limits Post-Nursing Left Nipple: Within Normal Limits Post-Nursing Right Nipple: Within Normal Limits Assessments/Interventions Assessments/Interventions: Met with mom and this now 1 month old ex- term AGA baby for consult.? Mom reports she originally scheduled the visit d/t his shallow latch both on the breast and the bottle but states it's gotten better on the bottle.? She's also been mostly bottle feeding d/t his slow weight gain and her concern that she didn't know how much he was getting at the breast.? She reports baby is eating every 2 - 4 hours and she sometimes attempts to nurse but when he gets frustrated she ends up giving him a bottle and she'll pump.? Baby is taking 2 - 2.5 oz EBM/formula at each feeding; mom is pumping with every feeding and gets about one oz total each time. Breasts are WNL- symmetrical with rounded lower quadrants; intramammary distance is < 1.5 inches.? Nipples are everted and don't flatten or retract on compression; no damage noted.? Baby has gained 64 grams/day since his last visit on 04/04 and is plotting around the 5th percentile on the growth chart.? Mom states since she started s upplementing him, he's been much more alert and active.? Per mom he was stuck in my pelvis and prefers to turn his head to the right.? She denies any caput/cephalohematoma at and states he moves his extremities equally.? His palate is WNL, but his upper frenulum is somewhat thick and tight.? He has a strong suck on a finger but doesn't open his mouth wide.? His tongue doesn't consistently extend past the gum line but has good lateral movement.? When he lifts it in crying it slants to the right.? The lower frenulum seems somewhat anterior.? He's seen a chiropractor once with a f/u later this week; that chiropractor suggested baby also see a craniosacral therapist. Mom latched baby to the right side in the football hold and he had a fairly wide latch, mom was comfortable.? After several minutes however, he lost the latch and it looked like he was spitting the nipple out.? Her milk is easy to express but this didn't seem to help baby stay on the breast and he began to get more fr ustrated.? She then tried the left side with the same result.? After about a 20 minute attempt, baby transferred 18 ml.? She then gave him a bottle of formula and he took about 1.5 oz by paced feeding.? We then looked at her pump and it was suggested she try the 20 mm flange. Plan: 1. Attempt to nurse with daytime feedings, but if she or baby get frustrated ok to bottle feed.? 2. Pump with every feeding or 8 times/24 hours.? 3. Supplement baby after nursing, or in place of nursing overnight.? Watch his cues and if he starts to need more that 2 - 2.5 oz ok to increase the supplement amount. 4. Reviewed different herbs she could try and gave her a handout (suggested [place]).? Also gave a handout on different stretches for her chest, back, and wrists. 5. Reviewed tongue exercises she and dad could try before latching baby to see if they help him with nursing.? Could consider a dental referral. 5. Gave her number to Diana De Leon, craniosacral therapist in the [place] area. 6. Will f/u on 04/21/22 by phone.? Will f/u with PCP for a 2 month [facility]. Meds Home Medications and Allergies Home Medications Medication Instructions Recorded Confirmed Type cholecalciferol (vitamin D3) 25 2,000 unit PO DAILY 02/17/22 03/31/22 History mcg (1,000 unit) tablet prenat.vits,jose,aaf-wtrb-hevrn 1 tab PO QDAY 02/17/22 03/31/22 History Allergies Allergy/AdvReac Type Severity Reaction Status Date / Time ketoconazole Allergy Mild Hives Verified 03/21/22 15:05 nystatin Allergy Mild Hives Verified 03/21/22 15:05 Sulfa (Sulfonamide Allergy Unknown Verified 03/21/22 15:05 Antibiotics)
== END 2022-04-10 12:52 | disposition home or self-care (01) ==
LOC: OB LAC 12:52
PROVIDERS: PCP Family Medicine; Visit Provider Obstetrics & Gynecology
DX: Z39.1 Encounter for care and examination of lactating mother (principal)
CPT/HCPCS: 99211

== ENCOUNTER 2022-04-28 15:22 | Outpatient (CLI) | payer BC, SELFPAY | END 2022-04-28 15:23 | disposition home or self-care (01) | LOC: NFLDREF 15:23 | PROVIDERS: PCP Family Medicine; Visit Provider Registered Nurse | DX: Z39.2 Encounter for routine postpartum follow-up (principal); E03.9 Hypothyroidism, unspecified | CPT/HCPCS: 84443 ==

== ENCOUNTER 2023-08-17 08:29 | Outpatient (CLI) | payer BC, SELFPAY | END 2023-08-17 08:30 | disposition home or self-care (01) | PROVIDERS: PCP Family Medicine; Visit Provider Obstetrics & Gynecology | DX: Z34.91 Encounter for supervision of normal pregnancy, unspecified, first trimester (principal); O09.521 Supervision of elderly multigravida, first trimester; Z3A.08 8 weeks gestation of pregnancy | CPT/HCPCS: 82565; 82570; 84156; 84443; 84450; 84460; 84520; 86592; 86703; 86704; 86706; 86762; 86787; 86803; 86850; 86900; 86901; 87086; 87340; 87491; 87591 ==

== ENCOUNTER 2023-08-28 09:17 | Outpatient (CLI) | payer BC, SELFPAY | END 2023-08-28 09:18 | disposition home or self-care (01) | LOC: NFLDREF 08-29 06:24 | PROVIDERS: PCP Family Medicine; Referring Provider Family Medicine; Visit Provider Obstetrics & Gynecology | DX: O16.9 Unspecified maternal hypertension, unspecified trimester (principal) | CPT/HCPCS: 82570; 84156 ==

== ENCOUNTER 2023-09-17 15:42 | Outpatient (CLI) | payer BC, SELFPAY | END 2023-09-17 15:43 | disposition home or self-care (01) | PROVIDERS: PCP Family Medicine; Visit Provider Obstetrics & Gynecology | DX: O09.299 Supervision of pregnancy with other poor reproductive or obstetric history, unspecified trimester (principal) | CPT/HCPCS: 84443; 84450; 84460 ==

== ENCOUNTER 2024-01-04 12:08 | Outpatient (CLI) | payer BC, SELFPAY ==
--- NOTE | 2024-01-04 12:15 | US_ITS ---
Patient: CANDIE TRINH Facility:?[facility] Patient ID:?[id number] Site Patient ID:?[id number] Site :?[id number] Study:?US-OB Pelvis FOLLOW UP-01/04/2024 12:44:25 PM Ordering Physician:?CHERYL SILVA Final Report: INDICATION: Essential primary hypertension COMPARISON: none TECHNIQUE: Real time burt scale imaging of the fetus was performed FINDINGS: Sonographic imaging demonstrates a single living intrauterine gestation. Fetus demonstrates a regular cardiac rate of 149 beats per minute. Fetus has a radha breech position. The placenta lies anteriorly. Amniotic fluid volume appears normal and there is a single deepest vertical pocket: 5.4 cm. The estimated weight is 1440gm which lies at the 91st %. BPD 77th percentile. HC is 64th percentile. AC 89th percentile. FL is 74th percentile. The HC/AC ratio measures 1.05 range (0.98-1.20). IMPRESSION: Sonographic gestational age 29 weeks 4 days and sonographic due date of 03/17/2024. Sonographic age 10 days ahead of the clinical age. Estimated weight 91st percentile. Abdominal circumference 89th percentile. Dictated by Kei Navarrete MD @ 01/04/2024 1:19:34 PM Signed by:?Kei Navarrete MD @01/04/2024 1:19:34 PM (Electronic Signature)
== END 2024-01-04 12:09 | disposition home or self-care (01) ==
LOC: US 12:09
PROVIDERS: PCP Family Medicine; Visit Provider Obstetrics & Gynecology
DX: O10.913 Unspecified pre-existing hypertension complicating pregnancy, third trimester (principal); Z3A.29 29 weeks gestation of pregnancy
CPT/HCPCS: 76816; 86592; 86850; J2791

== ENCOUNTER 2024-01-23 13:31 | Outpatient (CLI) | payer BC, SELFPAY | END 2024-01-23 13:32 | disposition home or self-care (01) | LOC: NFLDREF 02-08 18:11 | PROVIDERS: PCP Family Medicine; Referring Provider Family Medicine; Visit Provider Obstetrics & Gynecology | DX: E03.9 Hypothyroidism, unspecified (principal) | CPT/HCPCS: 84443 ==

== ENCOUNTER 2024-02-01 09:06 | Outpatient (CLI) | payer BC, SELFPAY ==
--- NOTE | 2024-02-01 09:15 | CRLHL7_ITS ---
For Patients: As a result of the Cures Act, medical imaging exams and procedure reports are released immediately into your electronic medical record. You may view this report before your referring provider. If you have questions, please contact your health care provider. HISTORY: Primary hypertension. Advanced maternal age. COMPARISON: Ob ultrasound from 01/04/2024 TECHNIQUE: Ultrasound examination of the is performed with transabdominal technique. The biophysical profile is also performed. FINDINGS: A single intrauterine gestation is seen in transverse lie with regular cardiac activity at 141 beats per minute. The placenta is anterior and is free of the cervical os. The placental grade is 2 and the amniotic fluid volume is normal. Single deepest vertical pocket: Normal at 4.7 cm. BPD: 8.4 cm 33 weeks 4 days HC: 32.0 cm 36 weeks 0 days AC: 30.2 cm 34 weeks 1 day. Ninety-fourth percentile FL: 6.6 cm 33 weeks 6 days The estimated age by ultrasound is 34 weeks 3 days, with an estimated date of delivery of 03/11/2024. This represents an increase in rate of growth compared with the clinical age of 32 weeks 1 day and the previous ultrasound. The estimated date of delivery has advanced by 6 days compared to the previous ultrasound. The ultrasound ratios are normal. The estimated weight of 2400 grams is at the 94th percentile based on the clinical dates. A anatomic survey is not performed. The biophysical profile score is 8/8, with no points off. IMPRESSION: 1. Single intrauterine gestation in transverse lie with regular cardiac activity. 2. Estimated gestational age is 34 weeks 3 days. 3. There has an increase in rate of growth compared to the previous ultrasound and the clinical dates 4. The estimated weight of 2400 grams is at the 94th percentile based on the clinical dates. 5. Biophysical profile score is 8/8, with no points off. Dictated by Everett Mayers MD @ 02/03/2024 11:46:40 PM (Electronically Signed)
== END 2024-02-01 09:07 | disposition home or self-care (01) ==
LOC: US 09:07
PROVIDERS: PCP Family Medicine; Visit Provider Obstetrics & Gynecology
DX: O10.913 Unspecified pre-existing hypertension complicating pregnancy, third trimester (principal); O09.523 Supervision of elderly multigravida, third trimester; Z3A.34 34 weeks gestation of pregnancy
CPT/HCPCS: 76816; 76819

== ENCOUNTER 2024-02-13 15:13 | Outpatient (CLI) | payer BC, SELFPAY | END 2024-02-13 15:14 | disposition home or self-care (01) | LOC: NFLDREF 15:14 | PROVIDERS: PCP Family Medicine; Visit Provider Obstetrics & Gynecology | DX: O10.913 Unspecified pre-existing hypertension complicating pregnancy, third trimester (principal); O09.523 Supervision of elderly multigravida, third trimester; Z3A.33 33 weeks gestation of pregnancy | CPT/HCPCS: 82565; 82728; 84450; 84460 ==

== ENCOUNTER 2024-02-25 14:05 | Outpatient (CLI) | payer BC, SELFPAY ==
--- NOTE | 2024-02-25 14:00 | CRLHL7_ITS ---
For Patients: As a result of the Century Cures Act, medical imaging exams and procedure reports are released immediately into your electronic medical record. You may view this report before your referring provider. If you have questions, please contact your health care provider. INDICATION: Hypertension, IVF TECHNIQUE: Real time burt scale imaging of the fetus was performed. COMPARISON: 02/01/2024 FINDINGS: Sonographic imaging demonstrates a single living intrauterine gestation. Fetus demonstrates a regular cardiac rate of 145 beats per minute. Fetus has a breech/oblique position. The placenta lies anteriorly. Amniotic fluid volume appears normal and there is a single deepest pocket of 5.7 cm. The estimated weight is 3153gm which lies at the 90th %. On the prior OB ultrasound dated 02/01/2024 the estimated weight was at the 94th percentile. BPD 44th percentile. HC 82nd percentile. AC 87th percentile. FL< 97th percentile. The fetus was active and demonstrated normal breathing movements. There was normal flexion and extension of the trunk and extremities. IMPRESSION: Normal biophysical profile score 8/8. Sonographic gestational age 37 weeks 2 days and sonographic due date 03/15/2024. Sonographic age 12 days ahead of the clinical age. Estimated weight 90th percentile. Abdominal circumference 87th percentile. Dictated by Kei Navarrete MD @ 02/26/2024 6:05:10 AM (Electronically Signed)
== END 2024-02-25 14:06 | disposition home or self-care (01) ==
LOC: US 14:05
PROVIDERS: PCP Family Medicine; Visit Provider Obstetrics & Gynecology
DX: O09.813 Supervision of pregnancy resulting from assisted reproductive technology, third trimester (principal); O09.523 Supervision of elderly multigravida, third trimester; O13.3 Gestational [pregnancy-induced] hypertension without significant proteinuria, third trimester; O36.63X0 Maternal care for excessive fetal growth, third trimester, not applicable or unspecified; Z3A.35 35 weeks gestation of pregnancy
CPT/HCPCS: 76816; 76819; 87081; 87653

== ENCOUNTER 2024-03-05 15:03 | Outpatient (CLI) | payer BC, SELFPAY | END 2024-03-05 15:04 | disposition home or self-care (01) | PROVIDERS: PCP Family Medicine; Visit Provider Obstetrics & Gynecology | DX: Z34.93 Encounter for supervision of normal pregnancy, unspecified, third trimester (principal); Z3A.36 36 weeks gestation of pregnancy | CPT/HCPCS: 82565; 82570; 84156; 84450; 84460; 84520 ==

== ENCOUNTER 2024-03-12 05:30 | Inpatient (IN) | payer BC, SELFPAY ==
[2024-03-12] VITALS (47 sets, daily range): BP systolic 128–177; BP diastolic 80–130; PULSE 56–94; RESP 12–16; TEMP 36.6–36.9; O2SAT 93–100; BMI 34.3
[2024-03-12 06:35] LABS: Hemoglobin* 11.7 gm/dL (12.0-16.0)
[2024-03-12] MEDS: LACTATED RINGERS 1000 ML 1,000 ML 125 ML IV ×3 (06:35→10:48)
[2024-03-12] MEDS: LABETALOL HCL 100 MG TABLET 400 MG PO ×3 (06:45→20:52)
[2024-03-12 06:48] LABS: Aspartate Amino Transferase* 25 U/L (12-35); Creatinine* 0.5 mg/dL (0.5-1.5); Est. Creatinine Clearance* 120.11; Estimated Glomerular Filt Rate 116 ml/min
[2024-03-12 06:49] LABS: Alanine Aminotransferase* 16 U/L (4-35); Blood Urea Nitrogen* 9 mg/dL (5-24)
[2024-03-12 06:50] LABS: Basophils Absolute Auto 0.04 K/uL (0.00-0.30); Basophils Percent Auto 0.6 % (0.0-3.0); Eosinophils Absolute Auto 0.09 K/uL (0.00-0.50); Eosinophils Percent Auto 1.3 % (0.0-7.0); Hematocrit 35.7 % (33.0-51.0); Hemoglobin* 11.6 gm/dL (12.0-16.0); Immature Granulocytes Abs Auto 0.02 K/uL (0.00-0.30); Immature Granulocytes Pct Auto 0.3 %; Lymphocytes Absolute Auto 2.02 K/uL (0.90-2.90); Lymphocytes Percent Auto 28.2 % (20-44); Mean Corpuscular HGB Conc 33 gm/dL (32-36); Mean Corpuscular Hemoglobin 30 pg (26-34); Mean Corpuscular Volume 93 fL (80-100); Monocytes Percent Auto 6.8 % (0.0-11.0); Neutrophils Absolute Auto 4.51 K/uL (1.7-7.0); Neutrophils Percent Auto 62.8 % (42.0-72.0); Platelet Count* 276 K/uL (140-440); RDW Coefficient of Variation % 15.8 % (11.5-15.5); Red Blood Count 3.83 m/uL (4.00-5.20); White Blood Count* 7.17 K/uL (4.50-11.00)
[2024-03-12 06:53] LABS: INR 0.92 (0.91-1.10); Partial Thromboplastin Time* 25 Seconds (23-33); Prothrombin Time 12.9 Seconds
[2024-03-12 06:54] LABS: Fibrinogen* 416 mg/dL (200-450)
[2024-03-12 06:56] LABS: Slide Review Reflex No
--- NOTE | 2024-03-12 07:14 | W.PM.H&PU_ITS ---
History & Physical Update History & Physical Update H&P Reviewed and patient assessed: The following changes are noted below H&P Updates: Patient had initial BP upon arrival of 171/107. Repeat was 144/105. Labs obtained, all normal (CBC, BUN, Cr, AST, ALT, urine P/C). Subsequent BPs 13 0s-140s/80s-90s. Asymptomatic. Took labetalol late this morning (0530).
[2024-03-12] MEDS: CEFAZOLIN 2 GM INJ IVP (07:45)
[2024-03-12 07:50] LABS: Creatinine Urine 232.7 mg/dL; Protein Creatinine Ratio Urine 0.03 (0-0.19); Total Protein Urine 6 mg/dL
[2024-03-12] MEDS: KETOROLAC 30 MG/ML inj IVP ×3 (08:48→20:31)
--- NOTE | 2024-03-12 08:52 | P.OBPRC_ITS ---
OB Delivery Proc Additional Procedures Tubal Ligation at the time of : No Procedure Date of procedure: 03/12/24 Pre-op diagnosis: 37 6/7 weeks gestation. Chronic hypertension. History of prior low transverse section. History of pre-eclampsia. Advanced maternal age. Post-op diagnosis: same Procedure Done: Global Will [facility] bill your pro fee for this procedure?: Yes Blood Loss Measurement Type: QBL (494 mL.) Bakri Used: No IV fluids (mL): 1,200 Urine Output (mL): 50 Surgeon: Marilynn Robles MD Anesthesia Type: Spinal and TAP Block Findings: Amount of adhesions between the fascia and rectus muscles. Live-born male infant, cephalic presentation, occiput transverse position, nuchal cord x1, Apgars nine and nine at one and 5 minutes respectively. Weight 7 lb 5 oz. Normal uterus, fallopian tubes, and ovaries bilaterally. Procedure Name: Repeat low transverse section. Procedure Description: After obtaining informed consent, the patient was taken to the operating room where spinal anesthesia was obtained and found to be adequate. She was prepared and draped in the normal sterile fashion in the dorsal supine position with a leftward tilt. A Pfannenstiel skin incision was made with a scalpel along the line of the patient's previous Pfannenstiel scar. This incision was carried down to the underlying layer of fascia with the Bovie. The fascia was incised in the midline and the incision extended laterally. The superior and inferior aspects of the fascial incision were grasped with Iris clamps, elevated and the underlying rectus muscles dissected off sharply and with electrocautery. This dissection took an increased amount of time given the dense adhesions. The rectus muscles were then in the midline. The Frank O retractor was then placed into the incision. The lower uterine segment was then incised in a transverse fashion with the scalpel. The uterine incision was extended laterally with blunt finger fractionation. Upon entry into the uterus, membranes bulged, there were ruptured with the pickups and clear amniotic fluid was noted. The 's head was delivered atraumatically, followed by the remainder of the 's body after reducing the nuchal cord over the hea d. The nose and mouth were suctioned with the bulb suction. The cord was doubly clamped and cut after a 30 second delay, and the infant was handed off the field for evaluation. The placenta was delivered spontaneously with umbilical cord traction and fundal massage. The uterus was cleared of all clots and debris. The uterine incision was reapproximated in a running locking fashion with a 0 c chromic suture. A 2nd layer of the same suture was used to imbricate in horizontal fashion. Hemostasis was visualized. The gutters were irrigated and suctioned. All instruments and retractors were r emoved. The anterior peritoneum was reapproximated in a running fashion with a 3-0 Vicryl suture. The subfascial tissues were carefully inspected and hemostasis assured. The fascia was reapproximated in a running fashion with a looped 0 Maxon suture. The subcutaneous tissues were copiously irrigated. Hemostasis was assured. The skin was closed in a subcuticular fashion with 4-0 Vicryl. Surgical glue and dressing were applied. A TAP block was administered by anesthesia. The patient tolerated the procedure well. Sponge, lap, needle, and instrument counts were reported as correct x2. The patient was taken to the recovery room, awake, and in stable condition. She did receive 2 grams of IV Ancef preoperatively, 1000 mg IV tranexamic acid following delivery of the placenta, and 30 mg IV Toradol at the conclusion of the procedure.. Complications: None. Pathology: specimen obtained, sent to pathology (Placenta.) Surgery Debrief Performed: Yes Surgery Debrief Comment: Confirmed procedure, cord blood obtained, placenta to be sent to pathology secondary to chronic hypertension. Condition: stable Disposition: floor
--- NOTE | 2024-03-12 09:21 | W.ANESCHARGE ---
Anesthesia Charges Start Date/Time Anesthesia Start Date: 03/12/24 Anesthesia Start Time: 07:25 Stop Date/Time Anesthesia Stop Date: 03/12/24 Anesthesia Stop Time: 09:10
--- NOTE | 2024-03-12 09:33 | W.ANESCHARGE ---
Anesthesia Charges Start Date/Time Anesthesia Start Date: 03/12/24 Anesthesia Start Time: 07:25 Stop Date/Time Anesthesia Stop Date: 03/12/24 Anesthesia Stop Time: 09:10
--- NOTE | 2024-03-12 09:34 | W.PM.NB ---
Nerve Block Nerve Block Time Seen by Provider: 09:05 Date Seen: 03/12/24 Type of block requested by surgeon for post-operative analgesia: TAP Side: bilateral Time out performed: Yes Verification of patient name: Yes Verification of date of : Yes Site marking: site marked Name of person performing procedure: Misael Continuous monitoring Was continuous monitoring of O2 sat, B/P, cardiac cath lab radiology technologist, recorded every 15 minutes?: Yes Procedure Checklist: sterile prep, needles and gloves Ultrasound guided. Images saved: Yes Medications given in 5ml increments after negative aspiration: Marcaine %: 0.25 mL: 30 Needle gauge: 20 and Exparel mL: 10 Patient tolerated procedure well: Yes Additional comments: Needle noted between internal oblique and transversus abdominus. Local spread visualized Block Charges Block Charge (with Pro Fee): TAP Bilateral Use of Ultrasound Machine for Block: Yes- US Guidance/pain block
[2024-03-12] MEDS: LABETALOL HCL 5 MG/ML inj IVP ×2 (10:50→11:08)
[2024-03-12] MEDS: MAGNESIUM IV 4 GM/100 ML PIGGYBACK IVPB (10:50)
[2024-03-12] MEDS: MAGNESIUM Infusion 40 GM/1,000 ML IV.SOLN IVPB (11:26)
[2024-03-12 13:20] LABS: Hematocrit 33.9 % (33.0-51.0); Mean Corpuscular HGB Conc 32 gm/dL (32-36); Mean Corpuscular Hemoglobin 30 pg (26-34); Mean Corpuscular Volume 94 fL (80-100); Platelet Count* 255 K/uL (140-440); Red Blood Count 3.62 m/uL (4.00-5.20); White Blood Count* 13.86 K/uL (4.50-11.00)
[2024-03-12 13:21] LABS: Slide Review Reflex No
[2024-03-12 13:33] LABS: Aspartate Amino Transferase* 32 U/L (12-35); Creatinine* 0.6 mg/dL (0.5-1.5); Est. Creatinine Clearance* 100.09; Estimated Glomerular Filt Rate 111 ml/min
[2024-03-12 13:34] LABS: Alanine Aminotransferase* 15 U/L (4-35); Blood Urea Nitrogen* 8 mg/dL (5-24)
[2024-03-12] MEDS: ONDANSETRON 2 MG/ML inj 4 MG IV (13:42)
[2024-03-12] MEDS: DOCUSATE SODIUM 100 MG CAPSULE PO (13:43)
[2024-03-12] MEDS: LACTATED RINGERS 1000 ML 1,000 ML 75 ML IV ×2 (14:44→22:13)
[2024-03-12] MEDS: NIFEdipine 30 MG TAB.ER.24 PO (16:48)
[2024-03-12 19:29] LABS: Hematocrit 33.6 % (33.0-51.0); Mean Corpuscular HGB Conc 33 gm/dL (32-36); Mean Corpuscular Hemoglobin 31 pg (26-34); Mean Corpuscular Volume 93 fL (80-100); Platelet Count* 256 K/uL (140-440)
[2024-03-12 19:47] LABS: Slide Review Reflex No
[2024-03-12 19:48] LABS: Aspartate Amino Transferase* 32 U/L (12-35); Creatinine* 0.6 mg/dL (0.5-1.5); Est. Creatinine Clearance* 100.09; Estimated Glomerular Filt Rate 111 ml/min
[2024-03-12 19:49] LABS: Alanine Aminotransferase* 16 U/L (4-35); Blood Urea Nitrogen* 9 mg/dL (5-24)
[2024-03-12] MEDS: ACETAMINOPHEN 500 MG TABLET 1000 MG PO (20:52)
[2024-03-13] VITALS (19 sets, daily range): BP systolic 104–154; BP diastolic 66–96; PULSE 66–79; RESP 14–16; TEMP 36.3–36.8; O2SAT 97–99
[2024-03-13 01:20] LABS: Hematocrit 29.7 % (33.0-51.0); Hemoglobin* 9.8 gm/dL (12.0-16.0); Mean Corpuscular HGB Conc 33 gm/dL (32-36); Mean Corpuscular Hemoglobin 30 pg (26-34); Mean Corpuscular Volume 92 fL (80-100); Platelet Count* 219 K/uL (140-440); Red Blood Count 3.23 m/uL (4.00-5.20); White Blood Count* 11.59 K/uL (4.50-11.00)
[2024-03-13 01:23] LABS: Slide Review Reflex No
[2024-03-13 01:29] LABS: Alanine Aminotransferase* 14 U/L (4-35); Aspartate Amino Transferase* 29 U/L (12-35); Blood Urea Nitrogen* 8 mg/dL (5-24); Creatinine* 0.5 mg/dL (0.5-1.5); Est. Creatinine Clearance* 120.11; Estimated Glomerular Filt Rate 116 ml/min
[2024-03-13] MEDS: KETOROLAC 30 MG/ML inj IVP ×3 (02:30→14:31)
[2024-03-13] MEDS: ACETAMINOPHEN 500 MG TABLET 1000 MG PO ×4 (02:45→23:47)
[2024-03-13] MEDS: MAGNESIUM Infusion 40 GM/1,000 ML IV.SOLN IVPB (06:34)
[2024-03-13 06:54] LABS: Hematocrit 30.1 % (33.0-51.0); Hemoglobin* 9.9 gm/dL (12.0-16.0); Mean Corpuscular HGB Conc 33 gm/dL (32-36); Mean Corpuscular Hemoglobin 31 pg (26-34); Mean Corpuscular Volume 93 fL (80-100); Platelet Count* 244 K/uL (140-440); Red Blood Count 3.23 m/uL (4.00-5.20); White Blood Count* 9.35 K/uL (4.50-11.00)
[2024-03-13 06:55] LABS: Slide Review Reflex No
[2024-03-13 07:12] LABS: Alanine Aminotransferase* 14 U/L (4-35); Aspartate Amino Transferase* 34 U/L (12-35); Blood Urea Nitrogen* 7 mg/dL (5-24); Creatinine* 0.6 mg/dL (0.5-1.5); Est. Creatinine Clearance* 100.09; Estimated Glomerular Filt Rate 111 ml/min
--- NOTE | 2024-03-13 08:06 | P.OBPN_ITS ---
OB - PN:Subj Subjective Time Seen by Provider: 07:35 Date Seen: 03/13/24 Patient comments OB post-: no complaints, pain well controlled and tolerating diet [place] infant status: and doing well Narrative: Malini is a 48 y.o. who was admitted to [facility] for repeat delivery. ?She had an uncomplicated .?The patient feels well. ?The pain is well controlled with current medications. ?She has no new complaints. ?She is breast feeding and reports things are going well.? the patient has done well, but had severely elevated blood pressures that had to be treated with IV a ntihypertensive medication.?Patient was started on magnesium sulfate infusion and will complete 24 hours today at around 11am. Patient with CHTN diagnosis, was utilizing labetalol 400mg TID and yesterday Nifedipine XR 30 mg daily was added. Today, Vitals have been stable. No BPs on severity range, no F[employer] irritability symptoms. She has remained afebrile.? Has a good appetite, is tolerating a general diet. ?She is voiding without difficulty.? She has not passed gas yet and has not had a bowel movement.? She is ambulating and denies any dizziness.? Has Small amount of rubra lochia. U/O has remained normal. Preeclampsia labs this morning normal as well. OB - PN: Obj Exam Physical Exam: Vital signs: Temp Pulse Resp BP Pulse Ox O2 Del Method 97.8 F 66 16 104/71 97 Room Air 03/13/24 04:00 03/13/24 04:00 03/13/24 06:04 03/13/24 06:00 03/13/24 04:00 03/13/24 04:00 Narrative: VITAL SIGNS: As noted above. GENERAL APPEARANCE: Alert, cooperative female in no acute distress. MOOD & AFFECT: Normal. HEART: Regular rate and rhythm without murmurs. LUNGS: Lungs are clear to auscultation bilaterally. No crackles, wheezes, or rhonchi. ABDOMEN: Soft, mildly distended, no guarding, no rebound, decreased bowel sounds, slightly tender to deep palpation. Uterus well contracted and appropriately tender. Incision covered, dressing is dry and clean. : Normal pp lochia. EXTREMITIES: Bilateral pitting edema +1. Well perfused. Nontender. NEURO: Intact. Urinary Catheter Management: Urethral: Cath placed during this visit: yes, but has since been removed by the nurse Reason for continuing: decision to DC catheter Insertion date: 03/12/24 Insertion time: 07:40 Removal date: 03/12/24 Removal time: 20:45 OB - PN: Obj Data Labs Labs: Laboratory Results - last 24 hr 03/12/24 03/12/24 03/13/24 13:10 19:20 01:09 WBC 13.86 H 12.60 H 11.59 H RBC 3.62 L 3.60 L 3.23 L Hgb 11.0 L 11.0 L 9.8 L Hct 33.9 33.6 29.7 L MCV 94 93 92 MCH 30 31 30 MCHC 32 33 33 Plt Count 255 256 219 BUN 8 9 8 Creatinine 0.6 0.6 0.5 Estimated Creat Clear 100.09 100.09 120.11 Estimated GFR 111 111 116 AST 32 32 29 ALT 15 16 14 03/13/24 06:42 WBC 9.35 RBC 3.23 L Hgb 9.9 L Hct 30.1 L MCV 93 MCH 31 MCHC 33 Plt Count 244 BUN 7 Creatinine 0.6 Estimated Creat Clear 100.09 Estimated GFR 111 AST 34 ALT 14 OB - PN: A/P Delivery Assessment and Plan (1) Status post repeat low transverse section: Status: Acute Assessment and Plan: Patient has not passed bowel gas yet, decreased bowel sounds, patient chewing gum, encouraged to increase ambulation today and will monitor closely. She has been able to tolerate meals last night w/o nausea or vomiting. (2) Chronic hypertension with superimposed pre-eclampsia: Problem details: Superimposed preeclampsia with severe features. Status: Acute Assessment and Plan: Continue magnesium sulfate infusion to complete 24 hours at around 11am today. Continue antihypertensive medication with labetalol 400mg TID and Nifedipine XR 30 mg daily. Will adjust if needed, depending on BP monitoring today. Otherwise, labs normal, normal urine output and no concerns for magnesium toxicity upon physical exam. Plan day: 1 Plan: routine care
[2024-03-13] MEDS: SODIUM CHLORIDE 0.9 % (FLUSH) 10 ML SYRINGE IVF (08:47)
[2024-03-13] MEDS: NIFEdipine 30 MG TAB.ER.24 PO (08:47)
[2024-03-13] MEDS: LABETALOL HCL 100 MG TABLET 400 MG PO ×3 (08:47→20:29)
[2024-03-13] MEDS: DOCUSATE SODIUM 100 MG CAPSULE PO (08:48)
[2024-03-13] MEDS: IBUPROFEN 600 MG TABLET PO (20:29)
[2024-03-14 00:11] VITALS: BP 157/86; PULSE 74; RESP 16; TEMP 36.9; O2SAT 98
[2024-03-14] MEDS: NIFEdipine 30 MG TAB.ER.24 PO (00:17)
[2024-03-14 02:15] VITALS: BP 138/84
[2024-03-14] MEDS: IBUPROFEN 600 MG TABLET PO ×2 (03:55→11:20)
[2024-03-14 04:13] VITALS: BP 149/89; PULSE 64; RESP 16; TEMP 36.6; O2SAT 96
[2024-03-14] MEDS: ACETAMINOPHEN 500 MG TABLET 1000 MG PO ×2 (06:24→13:39)
[2024-03-14 06:25] VITALS: BP 149/90; PULSE 76; RESP 16; O2SAT 98
[2024-03-14 07:11] LABS: Rapid Plasma Reagin (RPR) Non Reactive (Non Reactive)
[2024-03-14] MEDS: DOCUSATE SODIUM 100 MG CAPSULE PO (08:38)
[2024-03-14] MEDS: LABETALOL HCL 100 MG TABLET 400 MG PO (08:38)
[2024-03-14] MEDS: NIFEdipine 30 MG TAB.ER.24 60 MG PO (08:38)
--- NOTE | 2024-03-14 08:41 | P.OBPN_ITS ---
OB - PN:Subj Subjective Time Seen by Provider: 08:41 Date Seen: 03/14/24 Interval history: Malini is doing well after her on 03/12/2024. She has no problems with pain, is tolerating a regular diet and passing flatus. She is ambulating without difficulty and urine output is adequate. Her blood pressure remains 140-150s/90s on nifedipine ER 30 mg b.i.d. and labetalol 400 mg t.i.d. I increased her nifedipine to 60 mg twice a day and will monitor her blood pressure over the course the day today. Would like to be discharged home but I will not be able to that unless her blood pressure is under good control. She understands. OB - PN: Obj Exam Physical Exam: Vital signs: Temp Pulse Resp BP Pulse Ox O2 Del Method 97.8 F 76 16 149/90 H 98 Room Air 03/14/24 04:13 03/14/24 06:25 03/14/24 06:25 03/14/24 06:25 03/14/24 06:25 03/14/24 06:25 Narrative: GENERAL APPEARANCE: Pleasant, , well-groomed woman in no acute distress. VITAL SIGNS: as noted in nursing notes HEAD: Normocephalic, atraumatic. THYROID: no masses, nodularity, tenderness or enlargement. LUNGS: Clear to auscultation bilaterally without wheezes, rales or rhonchi. HEART: Regular rate and rhythm with normal S1 and S2. No gallop, rub or murmur. FUNDUS: Firm, 1 cm below the umbilicus in the midline. INCISION: Clean, dry and intact with sutures and skin adhesive gel. EXTREMITIES: No cyanosis, clubbing, or edema. No varicosities. NEUROLOGIC: Normal gait and balance. Normal deep tendon reflexes at bilateral patella 2+/2, equal without clonus. PSYCHIATRIC: alert and oriented x3. Normal speech pattern, eye contact and affe ct. SKIN: Warm, dry, and well perfused. Good turgor. No lesions, nodules or rashes. Urinary Catheter Management: Urethral: Cath placed during this visit: yes, but has since been removed by the nurse Reason for continuing: decision to DC catheter Insertion date: 03/12/24 Insertion time: 07:40 Removal date: 03/12/24 Removal time: 20:45 OB - PN: Obj Data Labs Labs: Laboratory Results - last 24 hr 03/12/24 03/13/24 06:18 06:42 RPR Screen Non Reactive Screen Negative OB - PN: A/P Delivery Assessment and Plan (1) Status post repeat low transverse section: Status: Acute (2) Chronic hypertension with superimposed pre-eclampsia: Problem details: Superimposed preeclampsia with severe features. Status: Acute Plan 1. Increase nifedipine ER to 60 mg b.i.d.. Continue labetalol 400 mg p.o. t.i.d. 2. If blood pressure is consistently below 150/100 I will be able to discharge her later today 3. She has the ability to check her blood pressure at home and will be doing so and criteria for calling with either elevated or low blood pressures. 4. Preeclampsia labs ordered. 5. Will re-evaluate blood pressures after she has her morning medications for assessment of ability to discharge today.
[2024-03-14 08:53] LABS: Hematocrit 34.1 % (33.0-51.0); Hemoglobin* 10.9 gm/dL (12.0-16.0); Mean Corpuscular HGB Conc 32 gm/dL (32-36); Mean Corpuscular Hemoglobin 30 pg (26-34); Mean Corpuscular Volume 95 fL (80-100); Platelet Count* 267 K/uL (140-440); White Blood Count* 11.14 K/uL (4.50-11.00)
[2024-03-14 08:54] LABS: Slide Review Reflex No
[2024-03-14 09:09] LABS: Aspartate Amino Transferase* 30 U/L (12-35); Blood Urea Nitrogen* 8 mg/dL (5-24); Creatinine* 0.6 mg/dL (0.5-1.5); Est. Creatinine Clearance* 100.09; Estimated Glomerular Filt Rate 111 ml/min
[2024-03-14 09:10] LABS: Alanine Aminotransferase* 15 U/L (4-35)
[2024-03-14 11:06] VITALS: BP 143/85; PULSE 78; RESP 12; TEMP 36.7; O2SAT 96
[2024-03-14] MEDS: LABETALOL HCL 100 MG TABLET 600 MG PO (13:43)
--- NOTE | 2024-03-14 15:16 | P.DS_ITS ---
DS: Providers Provider Time Seen by Provider: 15:16 Date Seen: 03/14/24 Date of admission: 03/12/24 05:30 Primary care physician: Anais Joya MD Admitting Clinician: Marilynn Robles MD Attending Physician on discharge: Eleanor Craft MD DS: Diagnosis Discharge Diagnosis (1) Chronic hypertension with superimposed pre-eclampsia: Status: Acute Problem details: Superimposed preeclampsia with severe features. (2) Status post repeat low transverse section: Status: Acute Exam Narrative: Exam Narrative: GENERAL APPEARANCE: Pleasant, [race], well-groomed woman in no acute distress. VITAL SIGNS: as noted in nursing notes LUNGS: Clear to auscultation bilaterally without wheezes, rales or rhonchi. HEART: Regular rate and rhythm with normal S1 and S2. No gallop, rub or murmur. ABDOMEN: Soft, nontender, nondistended, with normal bowels sounds throughout. FUNDUS: Firm, midline and 1 cm below the umbilicus. INCISION: Clean, dry and intact with sutures and skin adhesive gel. EXTREMITIES: No cyanosis, clubbing, or edema. No varicosities. NEUROLOGIC: Normal gait and balance. Normal deep tendon reflexes at bilateral patella 2+/2, equal without clonus. PSYCHIATRIC: alert and oriented x3. Normal speech pattern, eye contact and affect. SKIN: Warm, dry, and well perfused. Good turgor. No lesions, nodules or rashes. Const: Vital Signs, click to edit/add: Vital Signs - 24 hr 03/13/24 16:10 03/13/24 20:25 03/13/24 23:56 Temperature 97.5 F L 98.2 F Pulse Rate [Pulse Oximeter] 74 79 Respiratory Rate 16 16 Blood Pressure [Ri ght Arm] 120/78 138/86 154/96 H Pulse Oximetry 97 97 Oxygen Delivery Me thod Room Air Room Air 03/14/24 00:11 03/14/24 02:15 03/14/24 04:13 Temperature 98.4 F 97.8 F Pulse Rate [Pulse Oximeter] 74 64 Respiratory Rate 16 16 Blood Pressure [Ri ght Arm] 157/86 H 138/84 149/89 H Pulse Oximetry 98 96 Oxygen Delivery Me thod Room Air Room Air 03/14/24 06:25 03/14/24 11:06 Temperature 98.1 F Pulse Rate [Pulse Oximeter] 76 78 Respiratory Rate 16 12 Blood Pressure [Ri ght Arm] 149/90 H 143/85 H Pulse Oximetry 98 96 Oxygen Delivery Me thod Room Air Room Air OB - DS: Summary Hospital Course Hospital Course: Malini is a 48 year old G 2 P 2 at 37 weeks 6 days gestation that was admitted to the [facility] on 03/12/24 for scheduled repeat low-transverse section. She had an uncomplicated delivery. She delivered a viable male . She is breast feeding. course has been complicated by elevated blood pressure. On postop day 1 nifedipine ER 30 mg p.o. b.i.d. was added to her baseline labetalol 400 mg p.o. t.i.d.. Today the nifedipine was increased to 60 mg b.i.d. and labetalol increased to 600 mg t.i.d.. Malini reports that she feels ?great?. She denies headache, swelling, right upper quadrant pain, nausea/vomiting and visual disturbance. She states that she is much less swollen than she was with her 1st child. She would like to go home today. I asked her to follow-up in the office on Sunday03/17/2024 for a blood pressure check. She will also be checking her blood pressure at home on a daily basis in the morning an hour after taking her a.m. dose of medications. I will also have her take her blood pressure additionally if she develops any symptoms of severe preeclampsia. Peripartum Data Infant delivery method: Repeat Section Procedures: Procedures Operation Date: 03/12/24 07:15 Actual Procedure Side Surgeon p Repeat Section Marilynn Robles MD [place] Gender: Male Status at Discharge Functional status at discharge: independent ambulation Overall status at discharge: patient is progressing back to baseline Time Spent with Patient Time attestation: Total time spent providing and/or coordinating discharge services: Time spent: Less than 30 minutes Discharge Plan Discharge Disposition: Home, Self-Care Date of Admission: 03/12/24 05:30 Attending Provider on Discharge: Eleanor SalasLanre Primary Care Provider: Anais Joya Condition: Stable Anticipated Discharge Date/Time: 03/14/24 16:00 Discharge Medications: New docusate sodium 100 mg Capsule 100 mg PO BID Qty: 100 0RF nifedipine 30 mg Tablet Extended Release 24hr 60 mg PO BID Qty: 120 1RF ibuprofen 600 mg Tablet 600 mg PO Q6H PRN (Reason: Pain) Qty: 30 0RF labetalol 200 mg tablet 600 mg PO TID Qty: 240 1RF oxycodone 5 mg Tablet 5 mg PO 3XD PRN (Reason: Pain) Qty: 21 0RF Continued prenat.vits,jose,[id number] Tablet 1 tab PO QDAY cholecalciferol (vitamin D3) 25 mcg (1,000 unit) tablet 2,000 unit PO DAILY ferrous sulfate [Feosol] 325 mg (65 mg iron) tablet 325 mg PO QDAY levothyroxine 175 mcg tablet 175 mcg PO DAILY Qty: 90 1RF Discontinued aspirin 81 mg tablet,delayed release (DR/EC) 81 mg PO QDAY labetalol 200 mg tablet 400 mg PO TID Qty: 180 3RF valacyclovir 500 mg tablet 500 mg PO BID Qty: 60 0RF Discharge Orders: Discharge Order (Routine); Ordered 03/14/24 Ordered By: Eleanor Craft Patient Education: OB Over the Counter Medication Information, OB /Breast Feeding Additional Instructions: Discharge instructions were reviewed with the patient including signs and symptoms of infection and home going medications RESTRICTIONS: Lifting Restrictions: 20 pounds for 6 weeks No not submerge incision under water X 2 weeks? Nothing vaginally for 6 weeks: no tampons or intercourse Do not drive while taking narcotic pain medication(s) Off Work or School for a minimum of 8 weeks NO restriction for: Walking Bending over Going up or down stairs Being the passenger in a motor vehicle. Symptoms to report to doctor: * Bleeding that saturates more than one pad per hour * Passing clots larger than the size of a golf ball * Pain not relieved by prescribed medication * Fever above 100.4 degrees Fahrenheit * A foul vaginal odor * Difficulty in emotions, mood, and functions * Thoughts of hurting yourself and/or * Painful, reddened area in your breast * Any drainage, redness, or tenderness in your IV/epidural site * Severe headache that doesn't improve after taking medications * Changes in vision, including temporary loss of vision, blurred vision, and/or light sensitivity * Upper abdominal pain (usually under ribs on the right side) * Decrease in urination or painful, frequent urinating * Chest pain * Shortness of breath * Tenderness or pain with redness and/swelling in the calf(s) of your leg [facility] for a BP check?Sunday03/17/2024 Call with BP greater than or equal to 160/110 or less than 90/60. Optional 2-week visit: incision check, discuss infant care/feeding concerns, review control options and screen for anxiety/depression. 6-week visit for an annual (physical) exam. consultation services are available to all mothers and babies for the first year after delivery.? To make an appointment, please call [phone]. Discharge Diet: Regular Follow Up Appointments: Anais Joya MD [Primary Care Provider] - Forms: [employer] Info Instructions
== END 2024-03-14 16:03 | disposition home or self-care (01) | DRG 540 ==
PROVIDERS: Obstetrics & Gynecology; Admitting Provider Obstetrics & Gynecology; PCP Family Medicine; Visit Provider Obstetrics & Gynecology
PROC: 10D00Z1 Extraction of Products of Conception, Low, Open Approach (ICD-10-PCS; CPT 59514; principal; 2024-03-12 07:15)
DX: O10.92 Unspecified pre-existing hypertension complicating childbirth (principal); Z3A.37 37 weeks gestation of pregnancy; Z37.0 Single live birth; G89.18 Other acute postprocedural pain; O99.284 Endocrine, nutritional and metabolic diseases complicating childbirth; E03.9 Hypothyroidism, unspecified; O98.32 Other infections with a predominantly sexual mode of transmission complicating childbirth; A60.09 Herpesviral infection of other urogenital tract; O11.5 Pre-existing hypertension with pre-eclampsia, complicating the puerperium; Z98.891 History of uterine scar from previous surgery; O99.892 Other specified diseases and conditions complicating childbirth; K66.0 Peritoneal adhesions (postprocedural) (postinfection); O26.893 Other specified pregnancy related conditions, third trimester; Z67.41 Type O blood, Rh negative
CPT/HCPCS: 01961; 36415; 64488; 76942; 82565; 82570; 84156; 84450; 84460; 84520; 85018; 85025; 85027; 85384; 85461; 85610; 85730; 86592; 86850; 86900; 86901; 88307; A9270; C9290; J0665; J0690; J1100; J1885; J2274; J2371; J2405; J2590; J2791; J3475; J7120